=== PATIENT | female | born 1935 | race African-American/Black ===

== ENCOUNTER 2019-09-04 16:20 | Inpatient (IN) | payer MEDICARE, OTHER ==
[~2019-09-04] VITALS: Ht 165.1 cm; Wt 82.1 kg
[2019-09-04] MEDS ORDERED: Nitroglycerin 2% oint pkt TOPIC ONE (16:30)
[2019-09-04] MEDS ORDERED: Nitroglycerin Subl 0.4mg tab SL PRN (16:30)
--- NOTE | 2019-09-04 16:33 | Emergency Room Report ---
History of Present Illness General Chief Complaint: Dyspnea/Respdistress Source: Patient Present Illness HPI Disclaimer: Please note that this report is being documented using [employer] technology. This can lead to erroneous entry secondary to incorrect interpretation by the dictating instrument. HPI: 84-year-old female presents from home due to shortness of breath. She has a history of hypertension and CHF. She states she has been short of breath today. She denies any chest pain fever or coughing. EMS was called to the home. On their arrival patient was in the 80s on room air. Provided oxygen. On arrival to ER patient reports orthopnea and dyspnea on exertion. Sick contacts. PMH: Hypertension, CHF PSH: Reviewed Social Hx: Denies smoking drinking or illicit drug use Allergies: Coded Allergies: No Known Allergies (Unverified , 09/04/19) COVID-19 Screening Contact w/high risk pt: No Experienced COVID-19 symptoms?: Yes COVID-19 Testing performed METAL SOLDERER: No Patient History Last Menstrual Period: n/a Reviewed Nursing Documentation: PMH: Agreed; PSxH: Agreed Nursing Documentation-PMH Hx Hypertension: Yes - Hypertension Hx COPD: Yes - COPD Review of Systems All Other Systems: negative except mentioned in HPI Physical Exam Vital Signs Date Time Temp Pulse Resp B/P (MAP) Pulse Ox O2 Delivery O2 Flow Rate FiO2 09/04/19 16:15 98.8 115 18 165/103 (123) 99 Room Air Sp02 EP Interpretation: reviewed, normal General Appearance: well appearing, no apparent distress Head: normocephalic, atraumatic Eyes: bilateral eye PERRL, bilateral eye EOMI ENT: hearing grossly normal, moist mucus membranes Neck: full range of motion, supple Respiratory: normal breath sounds, no retraction, respiratory distress - Mild respiratory distress Cardiovascular #1: normal peripheral pulses, no murmur, tachycardia Gastrointestinal: non tender, soft, non-distended, no guarding Musculoskeletal: other - Trace bilateral lower extremity edema noted, no calf tenderness Neurologic: alert, oriented x3, no focal defects Skin: normal color, warm/dry Procedures Critical Care Time Critical Care Time Critical care is made on the patient due to presentation with bilateral PE requiring my acute intervention. Critical care time is approximately 40 minutes and excludes procedures. Medical Decision Making Diagnostic Impression: Primary Impression: Bilateral pulmonary embolism Additional Impressions: Shortness of breath Hypoxia ER Course MDM: Differential diagnosis included but not limited to COPD exacerbation, CHF exacerbation, pneumonia pulmonary embolism to name a few. Clinical course-IV inserted, chest x-ray laboratory studies nitroglycerin and Lasix ordered. Initially patient appeared to be in mild CHF exacerbation however chest x-ray did not show any obvious CHF pattern. Patient was tachycardic. Hypoxic on room air. I then decided to order a CT angiogram of the chest which demonstrated bilateral PE right greater than left. At this time patient was started on a heparin drip dosed by pharmacy and will be admitted overnight to the ICU. Update family at bedside in addition to patient' s primary care physician who requested Dr. Mcarthur. He did, evaluate the patient in the ER. Labs - Laboratory Tests Test 09/04/19 17:12 White Blood Count 8.4 K/UL (4.8-10.8) Red Blood Count 5.10 M/UL (4.20-5.40) Hemoglobin 15.3 G/DL (12.0-16.0) Hematocrit 46.4 % (37.0-47.0) Mean Corpuscular Volume 91 FL (80-99) Mean Corpuscular Hemoglobin 29.9 PG (27.0-31.0) Mean Corpuscular Hemoglobin Concent 32.9 G/DL (32.0-36.0) Red Cell Distribution Width 13.7 % (11.6-14.8) Platelet Count 179 K/UL (150-450) Mean Platelet Volume 9.6 FL (6.5-10.1) Neutrophils (%) (Auto) 59.4 % (45.0-75.0) Lymphocytes (%) (Auto) 29.8 % (20.0-45.0) Monocytes (%) (Auto) 7.9 % (1.0-10.0) Eosinophils (%) (Auto) 1.6 % (0.0-3.0) Basophils (%) (Auto) 1.4 % (0.0-2.0) Prothrombin Time 11.7 SEC (9.30-11.50) H Prothrombin Time INR 1.1 (0.9-1.1) Activated Partial Thromboplast Time 23 SEC (23-33) Sodium Level 137 MMOL/L (136-145) Potassium Level 3.3 MMOL/L (3.5-5.1) L Chloride Level 97 MMOL/L (98-107) L Carbon Dioxide Level 29 MMOL/L (21-32) Anion Gap 11 mmol/L (5-15) Blood Urea Nitrogen 17 mg/dL (7-18) Creatinine 1.1 MG/DL (0.55-1.30) Estimated Glomerular Filtration Rate 57.4 mL/min (>60) Glucose Level 138 MG/DL (74-106) H Calcium Level 9.4 MG/DL (8.5-10.1) Total Bilirubin 0.5 MG/DL (0.2-1.0) Aspartate Amino Transferase (AST) 56 U/L (15-37) H Alanine Aminotransferase (ALT) 47 U/L (12-78) Alkaline Phosphatase 103 U/L (46-116) Troponin I 0.014 ng/mL (0.000-0.056) Pro-B-Type Natriuretic Peptide 416 pg/mL (0-125) H Total Protein 8.4 G/DL (6.4-8.2) H Albumin 3.7 G/DL (3.4-5.0) Globulin 4.7 g/dL Albumin/Globulin Ratio 0.8 (1.0-2.7) L Microbiology Date/Time Source Procedure Growth Status 09/04/19 18:10 Nasopharynx SARS-CoV-2 RdRp Gene Assay - Final Complete On reevaluation: Patient appeared comfortable on facemask Plan-admission to the ICU, heparin drip EKG Diagnostic Results Rate: tachycardiac Rhythm: NSR ST Segments: other - ST depressions 1 aVL Other Impression Incomplete right bundle branch block Rhythm Strip Diag. Results EP Interpretation: yes Rhythm: no PVC's, no ectopy, other - Sinus tachycardia Chest X-Ray Diagnostic Results Chest X-Ray Diagnostic Results : Chest X-Ray Ordered: Yes # of Views/Limited/Complete: 1 View Indication: Shortness of Breath EP Interpretation: Yes Interpretation: no consolidation, no effusion, no pneumothorax Impression: No acute disease Electronically Signed by: Sadi Cohen MD CT/MRI/US Diagnostic Results CT/MRI/US Diagnostic Results : Imaging Test Ordered: CT angios chest Impression IMPRESSION: 1. Extensive bilateral central pulmonary emboli, right side more pronounced than the left side. 2. A few peripheral areas of pulmonary emboli predominantly the lower lobes. Last Vital Signs Date Time Temp Pulse Resp B/P (MAP) Pulse Ox O2 Delivery O2 Flow Rate FiO2 09/04/19 16:15 98.8 115 18 165/103 (123 99 Room Air Condition: Critical Sadi Cohen M.D. Sep 04, 2019 16:33
[2019-09-04 17:00] VITALS: BP 165/103
[2019-09-04 17:31] LABS: BASOPHILS % (AUTO) 1.4 % (0.0-2.0); EOSINOPHILS % (AUTO) 1.6 % (0.0-3.0); HEMATOCRIT 46.4 % (37.0-47.0); HEMOGLOBIN 15.3 G/DL (12.0-16.0); LYMPHOCYTES % (AUTO) 29.8 % (20.0-45.0); MEAN CORPUSCULAR VOLUME 91 FL (80-99); MONOCYTES % (AUTO) 7.9 % (1.0-10.0); NEUTROPHILS % (AUTO) 59.4 % (45.0-75.0); PLATELET COUNT 179 K/UL (150-450); RED CELL DISTRIBUTION WIDTH 13.7 % (11.6-14.8); WHITE BLOOD COUNT 8.4 K/UL (4.8-10.8)
[2019-09-04 17:41] LABS: INR 1.1 (0.9-1.1)
[2019-09-04 17:43] LABS: ANION GAP 11 mmol/L (5-15); BLOOD UREA NITROGEN 17 mg/dL (7-18); CALCIUM 9.4 MG/DL (8.5-10.1); CARBON DIOXIDE 29 MMOL/L (21-32); CHLORIDE 97 MMOL/L (98-107); CREATININE 1.1 MG/DL (0.55-1.30); POTASSIUM 3.3 MMOL/L (3.5-5.1); SODIUM 137 MMOL/L (136-145)
[2019-09-04 17:54] LABS: ALANINE AMINOTRANSFERASE 47 U/L (12-78); ALBUMIN 3.7 G/DL (3.4-5.0); ALBUMIN/GLOBULIN RATIO 0.8 (1.0-2.7); ALKALINE PHOSPHATASE 103 U/L (46-116); ASPARTATE AMINO TRANSFERASE 56 U/L (15-37); BILIRUBIN,TOTAL 0.5 MG/DL (0.2-1.0)
[2019-09-04] MEDS ORDERED: Omnipaque 350 100ml vial INJ PRN (18:15)
[2019-09-04] MEDS ORDERED: Albuterol/Ipratropium 3ml neb HHN PRN (19:30)
[2019-09-04] MEDS ORDERED: Miralax 17gm pkt ORAL PRN ×2 (19:30→21:00)
--- NOTE | 2019-09-04 19:30 | Diagnostic Imaging Report ---
EXAM: CT Chest With Intravenous Contrast CLINICAL HISTORY: SOB TECHNIQUE: Axial computed tomographic images of the chest with intravenous contrast. CTDI is 39.8 mGy and DLP is 236.9 mGy-cm. One or more of the following dose reduction techniques were used: automated exposure control, adjustment of the mA and/or kV according to patient size, use of iterative reconstruction technique. COMPARISON: 09/04/2019. FINDINGS: Pulmonary arteries: There is massive pulmonary embolism within the right main pulmonary artery extending out into the immediate branches. The thrombus within right main pulmonary artery measures approximately 5 x 6 x 4.4 rowan in extent. There is are pulmonary embolism within the distal left main pulmonary artery measuring approximate 1.6 x 2.3 x 1.8 cm. Aorta: Atherosclerotic disease of the thoracic aorta. Branches of the thoracic aorta are unremarkable. No thoracic aortic aneurysm. Lungs: Evaluation of the right pulmonary parenchyma reveals minimal subsegmental atelectasis posteriorly. Evaluation of the left pulmonary parenchyma reveals presumed areas of subsegmental atelectasis posteriorly. Minimal bronchiectasis at the left lung base. Minimal peripheral emboli are noted at the right upper lobe and the right lower lobe. No mass. Pleural space: Unremarkable. No significant effusion. No pneumothorax. Heart: Cardiomegaly. No significant pericardial effusion. No evidence of RV dysfunction. Mediastinum: Small to moderate hiatal hernia. Probable distal esophagitis. Bones/joints: Moderate to severe degenerative disc disease of the thoracic spine. The sternum is unremarkable. No acute fracture. No dislocation. Soft tissues: Unremarkable. Lymph nodes: Unremarkable. No enlarged lymph nodes. Liver: Fatty infiltration of liver. Adrenals: 1 cm probable left adrenal adenoma. 0.8 cm probable right adrenal adenoma. IMPRESSION: 1. Extensive bilateral central pulmonary emboli, right side more pronounced than the left side. 2. A few peripheral areas of pulmonary emboli predominantly the lower lobes. <MYCVCSECTION> Communications: 09/04/19 19:34 Call Doctor Regarding Pulmonary Embolism, called Dr. Marino on 09/03 19:39 (-07:00)
[2019-09-04 19:32] VITALS: BP 161/89
[2019-09-04] MEDS ORDERED: Heparin 5000 units/ml inj IV SCH (20:00)
[2019-09-04] MEDS ORDERED: Heparin 25,000u/D5W 500ml (VTE/AF) IV SCH (20:00)
[2019-09-04] MEDS ORDERED: Morphine Sulfate 2mg/ml Inj(IV/IM USE ONLY) IVP PRN (20:15)
[2019-09-04 20:30] VITALS: BP 129/78
--- NOTE | 2019-09-04 20:30 | History & Physical ---
History and Physical History & Physicial #[id number] dictated Papo Mcarthur MD Sep 04, 2019 20:30
[2019-09-04 21:00] VITALS: BP 132/87
[2019-09-04] MEDS ORDERED: Heparin 5000 units/ml inj SUBQ SCH (21:00)
[2019-09-04 22:00] VITALS: BP 122/87
--- NOTE | 2019-09-04 22:00 | History and Physical Report ---
DATE OF ADMISSION: 09/04/2019 CHIEF COMPLAINT: Shortness of breath. HISTORY OF PRESENT ILLNESS: This is an 84-year-old female with history of hypertension, hyperlipidemia, diabetes type 2, gout, hyponatremia, B12 deficiency, obesity, lower back pain, history of PE in 2018 treated with anticoagulation, hypertension, history of leaky valve, stroke, diabetes who presents to the emergency room with shortness of breath, which started earlier today at 3:30 p.m. while walking to the bathroom. She suddenly had chest pain radiating to her back and sudden shortness of breath. Her daughter brought her into the emergency room because of respiratory distress with shortness of breath. The patient was saturating in the 80s on room air upon arrival to the emergency room. She had a CTA chest showing extensive bilateral central pulmonary emboli right more than left. The patient denies any recent trips. She denies any trauma. She denies any long car rides or plane rides. She denies any history of malignancy. She does state that she does not walk and very sedentary due to her lower back pain. Her lower back pain is worse with walking and better when sitting. PAST MEDICAL HISTORY: As mentioned above obesity, history of PE and DVTs, diabetes, gout, hypertension, hyponatremia, osteoarthritis, lower back pain, history of valvular disorder of unknown valve, history of stroke, hypertension. PAST SURGICAL HISTORY: History of hysterectomy. SOCIAL HISTORY: The patient does not drink alcohol, smoke, or use any drugs. FAMILY HISTORY: Noncontributory. ALLERGIES: No known drug allergies. MEDICATIONS: Reviewed in DNA SEQ. REVIEW OF SYSTEMS: A 12-point review of systems negative except for pertinent positives as mentioned above. PHYSICAL EXAMINATION: VITAL SIGNS: Temperature is 98.4, pulse is 98, respiratory rate 22, blood pressure 161/89, O2 saturation is 87% on room air and 98% on 2 L. GENERAL: No acute distress. The patient is alert, awake, oriented x3. She is obese. NECK: Supple. No JVD. LUNGS: Clear to auscultation bilaterally with diminished lung sounds. CARDIOVASCULAR: Tachycardic. No murmurs, gallops, or rubs. ABDOMEN: Obese, nontender, and nondistended. EXTREMITIES: No clubbing, cyanosis, or edema. NEUROLOGIC: The patient is able move all extremities. SKIN: No rashes or jaundice. LABORATORY AND DIAGNOSTIC DATA: CBC, white count of 8.4, hemoglobin 15.3, and platelet count 179. CMP sodium 137, potassium 3.3, chloride 97, CO2 29, BUN is 17, creatinine is 1.1. Troponin 0.014. INR is 1.1. EKG reveals no ST changes. CTA shows bilateral pulmonary emboli. ASSESSMENT: 1. Acute PE bilaterally. 2. Obesity. 3. Sedentary secondary to lower back pain. 4. History of stroke. 5. History of PE and DVT. 6. Hypertension. 7. Diabetes. 8. Gout. 9. Lower back pain, likely lumbar spinal stenosis. PLAN: 1. Admit the patient to telemetry. 2. Pulmonary consult with Dr. Benjamin 3. Heparin drip. 4. TTE ordered for a.m. doppler legs ordered 5. Trend troponin. 6. The patient to be on oxygen with O2 sats at greater than 92%. 7. Lumbar and thoracic MRI. 8. Continue the patient's home medications. Papo Mcarthur MD DR: Hui JOB#: [id number] CC: FRANCOIS
[2019-09-04 23:00] VITALS: BP 116/72
[2019-09-05] VITALS (24 sets, daily range): BP systolic 97–142; BP diastolic 54–90
[2019-09-05] MEDS: Heparin 25,000u/D5W 500ml (VTE/AF) IV SCH ×2 (04:20→14:15)
[2019-09-05 05:28] LABS: EOSINOPHILS % (AUTO) 1.2 % (0.0-3.0); HEMATOCRIT 44.3 % (37.0-47.0); HEMOGLOBIN 14.6 G/DL (12.0-16.0); LYMPHOCYTES % (AUTO) 39.7 % (20.0-45.0); MEAN CORPUSCULAR VOLUME 90 FL (80-99); NEUTROPHILS % (AUTO) 50.2 % (45.0-75.0); PLATELET COUNT 180 K/UL (150-450); RED BLOOD COUNT 4.91 M/UL (4.20-5.40); RED CELL DISTRIBUTION WIDTH 12.6 % (11.6-14.8); WHITE BLOOD COUNT 9.1 K/UL (4.8-10.8)
[2019-09-05 05:55] LABS: ALBUMIN 3.5 G/DL (3.4-5.0); ANION GAP 10 mmol/L (5-15); BLOOD UREA NITROGEN 15 mg/dL (7-18); CALCIUM 8.7 MG/DL (8.5-10.1); CARBON DIOXIDE 27 MMOL/L (21-32); CHLORIDE 99 MMOL/L (98-107); CREATININE 1.1 MG/DL (0.55-1.30); PHOSPHORUS 5.9 MG/DL (2.5-4.9); POTASSIUM 3.5 MMOL/L (3.5-5.1); SODIUM 136 MMOL/L (136-145)
--- NOTE | 2019-09-05 08:22 | Consultation ---
Mandi Abreu KETTLE COORDINATOR 09/05/19 0822: History of Present Illness General Date patient seen: Sep 05, 2019 Chief Complaint: Dyspnea/Respdistress Referring physician: Dr Mcarthur Reason for Consultation: resp failure, expensive PE Present Illness HPI 84 years old female with PMH of HTN, DM, HLD, CHF, CVA, hx of PE, treated with a /c, currently not on any a/c, presented to ED with SOB, noted earlier while walking to the bathroom. Patient had a chest pain radiating to her back and sudden shortness of breath. On room air pulse oximetry apparently was in 80s Patient denied any trauma. She denied any recent treatment. She denied any history of malignancy. She denied fever and chills. No cough or congestion. Upon evaluation vital signs revealed no fever, tachycardia with heart rate 115, elevated blood pressure 165/103. Chest x-ray revealed subtle patchy opacity at the left base , which may be related to subsegmental atelectasis. CTA of the chest revealed extensive bilateral central pulmonary emboli, right side more than left. A few peripheral areas of pulmonary emboli predominantly the lower lobes. Laboratory work-up revealed no leukocytosis ,stable hemoglobin and hematocrit. Stable electrolytes , except potassium 3.3. Glucose 138. First troponin was -0.014. Second troponin 0.61. EKG revealed sinus tachycardia ,no acute ischemic changes. ProBNP 416. ABG was stable. Albumin 3.7. AST 56 ALT 47 . Rapid COVID-19 was negative. In emergency department patient was placed on supplemental oxygen via face mask. Patient started on heparin drip. One dose of IV Lasix was given. Patient had nitroglycerin patch . Second troponin 0.621. Patient admitted to ICU for further management . Pulmonary consult was requested to assist in management of this patient. Allergies: Coded Allergies: No Known Allergies (Unverified , 09/04/19) Medication History Scheduled Hydrochlorothiazide* (Hydrochlorothiazide*), 12.5 MG ORAL DAILY, (Reported) Nebivolol Hcl* (Bystolic*), 2.5 MG ORAL DAILY, (Reported) [CILNIDIPINE 10mg], 10 MG PO DAILY, (Reported) Patient History History Provided By: Patient Healthcare decision maker Resuscitation status Full code Advanced Directive on File Past Medical/Surgical History Past Medical/Surgical History: (1) Hyperlipidemia (2) Stroke (3) Diabetes (4) History of pulmonary embolism (5) HTN (hypertension) Review of Systems Constitutional: Reports: weakness Eye: Reports: no symptoms ENT: Reports: no symptoms Respiratory: Reports: see HPI Cardiovascular: Reports: see HPI Gastrointestinal: Reports: no symptoms Genitourinary: Reports: no symptoms Musculoskeletal: Reports: other - low back ain, chronic Skin: Reports: no symptoms Psychiatric: Reports: no symptoms Neurological: Reports: other - hx of CVA Endocrine: Reports: other - hx of DM Hematologic/Lymphatic: Reports: other - hx of PE 2018, treated with a/c Physical Exam General Appearance: no apparent distress - awake ad responsive elderly female , obese Lines, tubes and drains: peripheral HEENT: normocephalic, atraumatic, anicteric, mucous membranes moist Neck: non-tender, supple, normal inspection Respiratory/Chest: chest wall non-tender, lungs clear, no respiratory distress , no accessory muscle use Cardiovascular/Chest: normal peripheral pulses, normal rate, regular rhythm Abdomen: normal bowel sounds, non tender, soft Extremities: non-tender, no calf tenderness, normal capillary refill, other - moves all extremities Skin Exam: warm/dry Neurologic: no motor/sensory deficits, alert, responsive Musculoskeletal: atrophy - BLE Last 24 Hour Vital Signs Date Time Temp Pulse Resp B/P (MAP) Pulse Ox O2 Delivery O2 Flow Rate FiO2 09/05/19 07:00 98.0 79 21 124/74 (91) 98 09/05/19 06:00 77 20 97/63 (74) 97 09/05/19 05:00 75 20 106/65 (79) 97 09/05/19 04:00 77 09/05/19 04:00 Nasal Cannula 5.0 09/05/19 04:00 98.0 81 24 124/71 (88) 95 09/05/19 03:00 84 27 117/70 (86) 97 09/05/19 02:00 89 27 124/80 (95) 95 09/05/19 01:00 29 103/54 (70) 95 09/05/19 00:00 Nasal Cannula 5.0 09/05/19 00:00 100 09/05/19 00:00 30 113/64 (80) 95 09/04/19 23:00 30 116/72 (87) 97 09/04/19 22:00 26 122/87 (99) 98 09/04/19 22:00 Nasal Cannula 4.0 36 09/04/19 21:00 98.4 98 24 129/78 98 Room Air 09/04/19 21:00 Nasal Cannula 5.0 09/04/19 21:00 97.8 26 132/87 (102) 98 09/04/19 20:30 98.4 98 24 129/78 98 Room Air 09/04/19 19:32 98.4 22 161/89 98 Room Air 09/04/19 17:51 127/77 09/04/19 17:00 98.8 18 165/103 99 Room Air 09/04/19 17:00 94 18 Room Air 09/04/19 16:15 98.8 115 18 165/103 (123) 99 Room Air Intake and Output 09/04/19 09/05/19 19:00 07:00 Intake Total 492.846 ml Output Total 420 ml Balance 72.846 ml Intake Oral 120 ml IV Total 372.846 ml Output Urine Total 420 ml # Voids 1 # Bowel Movements 1 Laboratory Tests Test 09/04/19 17:12 09/04/19 21:43 09/04/19 23:15 09/05/19 02:00 White Blood Count 8.4 K/UL (4.8-10.8) Red Blood Count 5.10 M/UL (4.20-5.40) Hemoglobin 15.3 G/DL (12.0-16.0) Hematocrit 46.4 % (37.0-47.0) Mean Corpuscular Volume 91 FL (80-99) Mean Corpuscular Hemoglobin 29.9 PG (27.0-31.0) Mean Corpuscular Hemoglobin Concent 32.9 G/DL (32.0-36.0) Red Cell Distribution Width 13.7 % (11.6-14.8) Platelet Count 179 K/UL (150-450) Mean Platelet Volume 9.6 FL (6.5-10.1) Neutrophils (%) (Auto) 59.4 % (45.0-75.0) Lymphocytes (%) (Auto) 29.8 % (20.0-45.0) Monocytes (%) (Auto) 7.9 % (1.0-10.0) Eosinophils (%) (Auto) 1.6 % (0.0-3.0) Basophils (%) (Auto) 1.4 % (0.0-2.0) Prothrombin Time 11.7 SEC (9.30-11.50) H Prothromb Time International Ratio 1.1 (0.9-1.1) Activated Partial Thromboplast Time 23 SEC (23-33) 145 SEC (23-33) H Sodium Level 137 MMOL/L (136-145) Potassium Level 3.3 MMOL/L (3.5-5.1) L Chloride Level 97 MMOL/L (98-107) L Carbon Dioxide Level 29 MMOL/L (21-32) Anion Gap 11 mmol/L (5-15) Blood Urea Nitrogen 17 mg/dL (7-18) Creatinine 1.1 MG/DL (0.55-1.30) Estimat Glomerular Filtration Rate 57.4 mL/min (>60) Glucose Level 138 MG/DL (74-106) H Calcium Level 9.4 MG/DL (8.5-10.1) Total Bilirubin 0.5 MG/DL (0.2-1.0) Aspartate Amino Transf (AST/SGOT) 56 U/L (15-37) H Alanine Aminotransferase (ALT/SGPT) 47 U/L (12-78) Alkaline Phosphatase 103 U/L (46-116) Troponin I 0.014 ng/mL (0.000-0.056) 0.621 ng/mL (0.000-0.056) Pro-B-Type Natriuretic Peptide 416 pg/mL (0-125) H Total Protein 8.4 G/DL (6.4-8.2) H Albumin 3.7 G/DL (3.4-5.0) Globulin 4.7 g/dL Albumin/Globulin Ratio 0.8 (1.0-2.7) L Arterial Blood pH 7.439 (7.350-7.450) Arterial Blood Partial Pressure CO2 36.1 mmHg (35.0-45.0) Arterial Blood Partial Pressure O2 87.5 mmHg (75.0-100.0) Arterial Blood HCO3 23.9 mmol/L (22.0-26.0) Arterial Blood Oxygen Saturation 96.4 % (95-100) Arterial Blood Base Excess 0.2 (-2-2) Roman Test Positive Test 09/05/19 05:00 White Blood Count 9.1 K/UL (4.8-10.8) Red Blood Count 4.91 M/UL (4.20-5.40) Hemoglobin 14.6 G/DL (12.0-16.0) Hematocrit 44.3 % (37.0-47.0) Mean Corpuscular Volume 90 FL (80-99) Mean Corpuscular Hemoglobin 29.8 PG (27.0-31.0) Mean Corpuscular Hemoglobin Concent 33.0 G/DL (32.0-36.0) Red Cell Distribution Width 12.6 % (11.6-14.8) Platelet Count 180 K/UL (150-450) Mean Platelet Volume 8.8 FL (6.5-10.1) Neutrophils (%) (Auto) 50.2 % (45.0-75.0) Lymphocytes (%) (Auto) 39.7 % (20.0-45.0) Monocytes (%) (Auto) 8.0 % (1.0-10.0) Eosinophils (%) (Auto) 1.2 % (0.0-3.0) Basophils (%) (Auto) 1.0 % (0.0-2.0) Sodium Level 136 MMOL/L (136-145) Potassium Level 3.5 MMOL/L (3.5-5.1) Chloride Level 99 MMOL/L (98-107) Carbon Dioxide Level 27 MMOL/L (21-32) Anion Gap 10 mmol/L (5-15) Blood Urea Nitrogen 15 mg/dL (7-18) Creatinine 1.1 MG/DL (0.55-1.30) Estimat Glomerular Filtration Rate 57.4 mL/min (>60) Glucose Level 148 MG/DL (74-106) H Calcium Level 8.7 MG/DL (8.5-10.1) Phosphorus Level 5.9 MG/DL (2.5-4.9) H Troponin I 0.619 ng/mL (0.000-0.056) Albumin 3.5 G/DL (3.4-5.0) Microbiology Date/Time Source Procedure Growth Status 09/04/19 18:10 Nasopharynx SARS-CoV-2 RdRp Gene Assay - Final Complete 09/04/19 20:40 Rectum Received Height (Feet): 5 Height (Inches): 5.00 Weight (Pounds): 176 Medications Current Medications Medications (Trade) Dose Ordered Sig/Francisca Route PRN Reason Start Time Stop Time Status Last Admin Dose Admin Acetaminophen (Tylenol) 650 mg Q4H PRN ORAL T>100.5 09/04/19 19:30 10/04/19 19:29 Acetaminophen (Tylenol) 650 mg Q4H PRN ORAL Mild Pain (Pain Scale 1-3) 09/04/19 20:15 10/04/19 20:14 Albuterol/ Ipratropium (Albuterol/ Ipratropium) 3 ml Q4H PRN HHN Shortness of Breath 09/04/19 19:30 09/09/19 19:29 Dextrose (Dextrose 50%) 25 ml Q30M PRN IV Hypoglycemia 09/04/19 20:15 12/03/19 20:14 Dextrose (Dextrose 50%) 50 ml Q30M PRN IV Hypoglycemia 09/04/19 20:15 12/03/19 20:14 Heparin Sodium/ Dextrose 500 ml @ 27.21 mls/ hr ADJUST PER PROTOCOL IV 09/05/19 04:15 10/05/19 04:14 09/05/19 04:20 Hydralazine HCl (Apresoline) 10 mg Q4H PRN IV sbp>160 mmHg 09/04/19 20:30 12/03/19 20:29 Iohexol (Omnipaque 350 100ml) 100 ml NOW PRN INJ Radiology Procedure 09/04/19 18:15 09/06/19 18:12 Morphine Sulfate (Morphine Sulfate) 2 mg Q6H PRN IVP Moderate Pain (Pain Scale 4-6) 09/04/19 20:15 09/11/19 20:14 Nitroglycerin (Ntg) 0.4 mg Q5M PRN SL Prn Chest Pain 09/04/19 16:30 Ondansetron HCl (Zofran) 4 mg Q6H PRN IVP Nausea & Vomiting 09/04/19 20:15 10/04/19 20:14 Polyethylene Glycol (Miralax) 17 gm HSPRN PRN ORAL Constipation 09/04/19 21:00 10/04/19 20:59 Temazepam (Restoril) 15 mg HSPRN PRN ORAL Insomnia 09/04/19 21:00 09/11/19 20:59 Assessment/Plan Assessment/Plan: ASSESSMENT Acute hypoxemic resp failure ( requiring supplemetnal O2, likely due to acute extensive PE) Acute PE bilaterally ( with hx of prior PE 2018) Elevated troponin Acute DVT R popliteal and femoral veins HTN Severe pulmonary HTN DM HLD CHF r/o COVID 19 -rapid NGT PLAN OF CARE tele O2 titrate to keep sat above 92%, currenty on NC pulm toilet agree with heparin gtt for now,will consider switching to Lovenox treatment later given second episode pf PE will need a/c for a long time Venous Duplex -> DVT involving the right popliteal and femoral veins reoccurrence of PE most likely due to DVT, secondary to sedentary lifestyle serial troponin, this am minimally elevated ECHO with pEG 65%, moderate TR, RVSP of 65, c/w severe pulmonary HTN elevated troponin likely due to extensive PE BB, nitro consider cardio eval - per attending diuretics: Lasix and HcTZ, monitor volumes and cardiorenal parameters BP management, currently stable on this regimen of BB, Lasix and HcTZ add GI prophylaxis BS management - per primary team supportive care when dc consider sleep study and PFT as OP case discussed and evaluated by supervising physician Avila Benjamin MD 09/05/192044: History of Present Illness General Chief Complaint: Dyspnea/Respdistress Present Illness Allergies: Coded Allergies: No Known Allergies (Unverified , 09/04/19) Medication History Scheduled Hydrochlorothiazide* (Hydrochlorothiazide*), 12.5 MG ORAL DAILY, (Reported) Nebivolol Hcl* (Bystolic*), 2.5 MG ORAL DAILY, (Reported) [CILNIDIPINE 10mg], 10 MG PO DAILY, (Reported) Assessment/Plan Assessment/Plan: Patient seen and examined with KETTLE COORDINATOR. Agree with above A&P as it reflects our joint deliberations. Large b/l central PEs, hemodynamically stable but noted with LE DVTs and concern if there is dislodged DVT this could be catastrophic. Options would included transfer to [facility] for EKOS catheter but patient reluctant to do this. Discussed IVC filter placement and discussed this option with her granddaughter. Patient ultimatley agreed and this has been ordered STAT. Cont heparin gtt. Mandi Abreu KETTLE COORDINATOR Sep 05, 2019 08:22 Avila Benjamin MD Sep 05, 2019 20:45
--- NOTE | 2019-09-05 09:34 | Diagnostic Imaging Report ---
Indication:Leg pain and swelling Technique: Grayscale and duplex Doppler imaging of the veins in both lower extremities performed in real time utilizing compression and augmentation. Comparison: None Findings: The right common femoral vein is patent and normally compressible. It demonstrates normal color flow. The very proximal portion of the right femoral vein is patent. Mid and distal segments demonstrate echogenic thrombus with lack of complete compressibility. There is also echogenic thrombus and lack of complete compressibility within the right popliteal vein. Some color flow is noted around this suggesting that thrombus is only partially occlusive. Left common femoral vein and imaged portions of the left proximal/mid/distal femoral vein and left popliteal vein are patent with normal compressibility and color flow. IMPRESSION: Deep venous thrombosis involving the right popliteal and femoral veins. No evidence of DVT on the left. Findings communicated to the patient's treating ICU nurse via telephone conversation.
--- NOTE | 2019-09-05 10:56 | Diagnostic Imaging Report ---
Indication: Shortness of breath Technique: XRAY Chest 1v Comparison: None Findings: Heart is borderline enlarged. Mediastinal contours are sharp. Atherosclerotic calcifications in the aorta. Subtle patchy opacities noted at the left base which may related to subsegmental atelectasis. No pleural effusion or pneumothorax. No radiographic evidence to suggest pulmonary edema. There are degenerative changes in the spine. No acute osseous abnormality. Impression: Subtle patchy opacities at the left base which may related to subsegmental atelectasis. Correlate clinically to exclude the possibility of developing pneumonia. Atherosclerotic vascular calcifications.
[2019-09-05] MEDS: hydroCHLOROthiazide 12.5mg TAB ORAL SCH (11:42)
[2019-09-05] MEDS: Bystolic 2.5mg Tab ORAL SCH (12:09)
[2019-09-05] MEDS ORDERED: BYSTOLIC2.5 MG ORAL (18:34)
[2019-09-05] MEDS ORDERED: [UNRECOGNIZED DRUG - OTHER] PO (18:34)
[2019-09-05] MEDS ORDERED: HYDROCHLOROTH12.5 MG ORAL (18:34)
--- NOTE | 2019-09-05 19:11 | Internal Med Progress Note ---
Subjective Physician Name Papo Mcarthur Attending Physician Papo Mcarthur MD Current Medications Medications (Trade) Dose Ordered Sig/Francisca Route PRN Reason Start Time Stop Time Status Last Admin Dose Admin Acetaminophen (Tylenol) 650 mg Q4H PRN ORAL T>100.5 09/04/19 19:30 10/04/19 19:29 Acetaminophen (Tylenol) 650 mg Q4H PRN ORAL Mild Pain (Pain Scale 1-3) 09/04/19 20:15 10/04/19 20:14 Albuterol/ Ipratropium (Albuterol/ Ipratropium) 3 ml Q4H PRN HHN Shortness of Breath 09/04/19 19:30 09/09/19 19:29 Dextrose (Dextrose 50%) 25 ml Q30M PRN IV Hypoglycemia 09/04/19 20:15 12/03/19 20:14 Dextrose (Dextrose 50%) 50 ml Q30M PRN IV Hypoglycemia 09/04/19 20:15 12/03/19 20:14 Heparin Sodium/ Dextrose 500 ml @ 27.21 mls/ hr ADJUST PER PROTOCOL IV 09/05/19 04:15 10/05/19 04:14 09/05/19 14:15 Hydralazine HCl (Apresoline) 10 mg Q4H PRN IV sbp>160 mmHg 09/04/19 20:30 12/03/19 20:29 Hydrochlorothiazide (Hydrodiuril) 12.5 mg DAILY ORAL 09/05/19 11:00 10/05/19 10:59 09/05/19 11:42 Iohexol (Omnipaque 350 100ml) 100 ml NOW PRN INJ Radiology Procedure 09/04/19 18:15 09/06/19 18:12 Morphine Sulfate (Morphine Sulfate) 2 mg Q6H PRN IVP Moderate Pain (Pain Scale 4-6) 09/04/19 20:15 09/11/19 20:14 Nebivolol (Bystolic) 2.5 mg DAILY ORAL 09/05/19 12:00 10/05/19 11:59 09/05/19 12:09 Nitroglycerin (Ntg) 0.4 mg Q5M PRN SL Prn Chest Pain 09/04/19 16:30 Ondansetron HCl (Zofran) 4 mg Q6H PRN IVP Nausea & Vomiting 09/04/19 20:15 10/04/19 20:14 Pantoprazole (Protonix) 40 mg DAILY ORAL 09/06/19 09:00 10/06/19 08:59 Polyethylene Glycol (Miralax) 17 gm HSPRN PRN ORAL Constipation 09/04/19 21:00 10/04/19 20:59 Temazepam (Restoril) 15 mg HSPRN PRN ORAL Insomnia 09/04/19 21:00 09/11/19 20:59 Allergies: Coded Allergies: No Known Allergies (Unverified , 09/04/19) Subjective in ICU on 7L O2 O2 sat 99% no CP Objective Last Vital Signs Date Time Temp Pulse Resp B/P (MAP) Pulse Ox O2 Delivery O2 Flow Rate FiO2 09/05/19 18:00 87 23 138/82 (100) 99 09/05/19 16:00 97.6 09/05/19 16:00 Nasal Cannula 5.0 09/04/19 22:00 36 General Appearance: WD/WN, no apparent distress EENT: PERRL/EOMI, normal ENT inspection Neck: normal alignment, supple Cardiovascular: normal rate, regular rhythm Respiratory/Chest: lungs clear, normal breath sounds Abdomen: non tender, soft Extremities: normal range of motion, non-tender Laboratory Tests Test 09/04/19 21:43 09/04/19 23:15 09/05/19 02:00 09/05/19 05:00 Arterial Blood pH 7.439 (7.350-7.450) Arterial Blood Partial Pressure CO2 36.1 mmHg (35.0-45.0) Arterial Blood Partial Pressure O2 87.5 mmHg (75.0-100.0) Arterial Blood HCO3 23.9 mmol/L (22.0-26.0) Arterial Blood Oxygen Saturation 96.4 % (95-100) Arterial Blood Base Excess 0.2 (-2-2) Roman Test Positive Troponin I 0.621 ng/mL (0.000-0.056) 0.619 ng/mL (0.000-0.056) Activated Partial Thromboplast Time 145 SEC (23-33) H White Blood Count 9.1 K/UL (4.8-10.8) Red Blood Count 4.91 M/UL (4.20-5.40) Hemoglobin 14.6 G/DL (12.0-16.0) Hematocrit 44.3 % (37.0-47.0) Mean Corpuscular Volume 90 FL (80-99) Mean Corpuscular Hemoglobin 29.8 PG (27.0-31.0) Mean Corpuscular Hemoglobin Concent 33.0 G/DL (32.0-36.0) Red Cell Distribution Width 12.6 % (11.6-14.8) Platelet Count 180 K/UL (150-450) Mean Platelet Volume 8.8 FL (6.5-10.1) Neutrophils (%) (Auto) 50.2 % (45.0-75.0) Lymphocytes (%) (Auto) 39.7 % (20.0-45.0) Monocytes (%) (Auto) 8.0 % (1.0-10.0) Eosinophils (%) (Auto) 1.2 % (0.0-3.0) Basophils (%) (Auto) 1.0 % (0.0-2.0) Sodium Level 136 MMOL/L (136-145) Potassium Level 3.5 MMOL/L (3.5-5.1) Chloride Level 99 MMOL/L (98-107) Carbon Dioxide Level 27 MMOL/L (21-32) Anion Gap 10 mmol/L (5-15) Blood Urea Nitrogen 15 mg/dL (7-18) Creatinine 1.1 MG/DL (0.55-1.30) Estimat Glomerular Filtration Rate 57.4 mL/min (>60) Glucose Level 148 MG/DL (74-106) H Calcium Level 8.7 MG/DL (8.5-10.1) Phosphorus Level 5.9 MG/DL (2.5-4.9) H Albumin 3.5 G/DL (3.4-5.0) Test 09/05/19 10:10 Activated Partial Thromboplast Time 65 SEC (23-33) H Microbiology Date/Time Source Procedure Growth Status 09/04/19 18:10 Nasopharynx SARS-CoV-2 RdRp Gene Assay - Final Complete 09/04/19 20:40 Rectum Received Intake and Output 09/04/19 09/05/19 19:00 07:00 Intake Total 492.846 ml Output Total 420 ml Balance 72.846 ml Intake Oral 120 ml IV Total 372.846 ml Output Urine Total 420 ml # Voids 1 # Bowel Movements 1 Assessment/Plan Assessment/Plan ASSESSMENT: 1. Acute PE bilaterally. 2. Obesity. 3. Sedentary secondary to lower back pain. 4. History of stroke. 5. History of PE and DVT. 6. Hypertension. 7. Diabetes. 8. Gout. 9. Lower back pain, likely lumbar spinal stenosis. 10. Deep venous thrombosis involving the right popliteal and femoral veins. PLAN: 1. ICU 2. Pulmonary consult with Dr. Benjamin 3. Heparin drip. 4. TTE - awaiting results 5.explained to patient that IVC filter will prevent further embolism given femoral DVT. she is agreeable. IVC filter ordered for weekend 6. The patient to be on oxygen with O2 sats at greater than 92%. 7. Lumbar and thoracic MRI as outpatient 8. Continue the patient's home medications. Papo Mcarthur MD Sep 05, 2019 19:11
[2019-09-05] MEDS ORDERED: Lidocaine 1% Plain 30 ml INJ PRN (19:30)
[2019-09-06] VITALS (24 sets, daily range): BP systolic 105–143; BP diastolic 54–83
[2019-09-06 05:03] LABS: BASOPHILS % (AUTO) 1.2 % (0.0-2.0); EOSINOPHILS % (AUTO) 4.3 % (0.0-3.0); HEMATOCRIT 43.1 % (37.0-47.0); HEMOGLOBIN 14.1 G/DL (12.0-16.0); LYMPHOCYTES % (AUTO) 43.6 % (20.0-45.0); MEAN CORPUSCULAR VOLUME 91 FL (80-99); MONOCYTES % (AUTO) 10.8 % (1.0-10.0); NEUTROPHILS % (AUTO) 40.1 % (45.0-75.0); PLATELET COUNT 170 K/UL (150-450); RED BLOOD COUNT 4.74 M/UL (4.20-5.40); RED CELL DISTRIBUTION WIDTH 12.9 % (11.6-14.8); WHITE BLOOD COUNT 7.1 K/UL (4.8-10.8)
[2019-09-06 05:19] LABS: ANION GAP 8 mmol/L (5-15); BLOOD UREA NITROGEN 15 mg/dL (7-18); CALCIUM 8.9 MG/DL (8.5-10.1); CARBON DIOXIDE 28 MMOL/L (21-32); CHLORIDE 101 MMOL/L (98-107); CREATININE 1.1 MG/DL (0.55-1.30); POTASSIUM 3.2 MMOL/L (3.5-5.1); SODIUM 137 MMOL/L (136-145)
[2019-09-06] MEDS ORDERED: Lactulose 20gm/30ml UDC ORAL SCH (08:15)
[2019-09-06] MEDS: hydroCHLOROthiazide 12.5mg TAB ORAL SCH (08:47)
[2019-09-06] MEDS: Bystolic 2.5mg Tab ORAL SCH (08:47)
[2019-09-06] MEDS: Heparin 25,000u/D5W 500ml (VTE/AF) IV SCH (08:58)
--- NOTE | 2019-09-06 09:09 | Pulmonolgy Critical Care Note ---
Mandi Abreu SURVEY RESEARCH PROFESSOR 09/06/19 0909: Critical Care - Asmt/Plan Assessment/Plan: ASSESSMENT Acute hypoxemic resp failure ( requiring supplemetnal O2, likely due to acute extensive PE) Acute PE bilaterally ( with hx of prior PE 2018) Elevated troponin Acute DVT R popliteal and femoral veins HTN Severe pulmonary HTN Hypokalemia DM HLD CHF r/o COVID 19 -rapid NGT constipation PLAN OF CARE tele O2 titrate to keep sat above 92%, currenty on NC pulm toilet with heparin gtt for now,will consider switching to Lovenox treatment later given second episode of PE will need a/c for a long time Venous Duplex -> DVT involving the right popliteal and femoral veins reoccurrence of PE most likely due to DVT, secondary to sedentary lifestyle IVC filter placement pending, not be done till Sunday serial troponin, minimally elevated ECHO with pEG 65%, moderate TR, RVSP of 65, c/w severe pulmonary HTN elevated troponin likely due to extensive PE BB, nitro consider cardio eval - per attending diuretics: Lasix and HcTZ, monitor volumes and cardiorenal parameters BP management, currently stable on this regimen of BB, Lasix and HcTZ added GI prophylaxis replace K, check Mg, BS management - per primary team supportive care when dc consider sleep study and PFT as OP bowel regimen, stool softener and Miralax , one dose of lactulose now case discussed and evaluated by supervising physician Critical Care - Objective Last 24 Hour Vital Signs Date Time Temp Pulse Resp B/P (MAP) Pulse Ox O2 Delivery O2 Flow Rate FiO2 09/06/19 08:00 97.4 62 18 137/79 (98) 98 09/06/19 07:00 57 17 117/62 (80) 98 09/06/19 06:00 58 16 113/60 (77) 97 09/06/19 05:00 68 19 132/71 (91) 97 09/06/19 04:00 Nasal Cannula 3.0 09/06/19 04:00 97.6 62 20 136/71 (92) 97 09/06/19 04:00 59 09/06/19 03:00 61 23 133/75 (94) 98 09/06/19 02:00 61 15 115/60 (78) 97 09/06/19 01:00 65 20 114/63 (80) 97 09/06/19 00:00 61 09/06/19 00:00 Nasal Cannula 3.0 09/06/19 00:00 97.8 61 16 105/64 (78) 97 09/05/19 23:00 65 30 117/67 (84) 97 09/05/19 22:00 69 22 130/67 (88) 97 09/05/19 21:00 79 22 130/76 (94) 98 09/05/19 20:00 94 09/05/19 20:00 97.8 90 26 130/76 (94) 99 09/05/19 20:00 Nasal Cannula 5.0 09/05/19 19:00 85 23 136/78 (97) 99 09/05/19 18:00 87 23 138/82 (100) 99 09/05/19 17:00 83 25 126/74 (91) 97 09/05/19 16:00 97.6 77 24 122/76 (91) 99 09/05/19 16:00 82 09/05/19 16:00 Nasal Cannula 5.0 09/05/19 15:00 81 24 114/65 (81) 98 09/05/19 14:00 97 29 118/71 (87) 90 09/05/19 13:00 81 26 117/67 (84) 98 09/05/19 12:00 75 09/05/19 12:00 97.8 86 26 118/90 (99) 97 09/05/19 12:00 Nasal Cannula 5.0 09/05/19 11:00 81 25 131/73 (92) 96 09/05/19 10:00 84 21 142/77 (98) 96 Objective: General Appearance: no apparent distress - awake ad responsive elderly female , Lines, tubes and drains: peripheral HEENT: normocephalic, atraumatic, anicteric, mucous membranes moist, O2 via NC Neck: non-tender, supple, normal inspection Respiratory/Chest: chest wall non-tender, lungs clear, no respiratory distress , no accessory muscle use Cardiovascular/Chest: normal peripheral pulses, normal rate, regular rhythm Abdomen: normal bowel sounds, non tender, soft Extremities: non-tender, no calf tenderness, normal capillary refill, moves all extremities Skin Exam: warm/dry Neurologic: no motor/sensory deficits, alert, responsive Musculoskeletal: atrophy - BLE Micro: Microbiology Date/Time Source Procedure Growth Status 09/04/19 18:10 Nasopharynx SARS-CoV-2 RdRp Gene Assay - Final Complete 09/04/19 20:40 Rectum Received Critical Care - Subjective ROS Limited/Unobtainable: Yes Interval Events: remains in ICU on heparin drip on o2 via NC no SOB, no chest pain, + weak IVC filter placement pending K-3,2 today c/o constipation Condition: critical IV Access: peripheral EKG Rhythm: Sinus Rhythm - occas SB high 50 th FI02: 36 Drips: Heparin gtt 15 u/kg/hr I&O: Intake and Output 09/05/19 09/06/19 19:00 07:00 Intake Total 746.52 ml 386.52 ml Output Total 900 ml 300 ml Balance -153.48 ml 86.52 ml Intake Oral 420 ml 60 ml IV Total 326.52 ml 326.52 ml Output Urine Total 900 ml 300 ml # Voids 2 CXR: CXR 09/03 - Subtle patchy opacities at the left base which may related to subsegmental atelectasis. Correlate clinically to exclude the possibility of developing pneumonia. Atherosclerotic vascular calcifications. Avila Benjamin MD 09/06/19 1403: Critical Care - Asmt/Plan Assessment/Plan: Patient seen and examined with SURVEY RESEARCH PROFESSOR. Agree with above A&P as it reflects our joint deliberations. Hemodynamically stable with tolerance of heparin gtt. IVC filter agreed to by patient but can't be done until sunday. Time Spent (Minutes): 50 - cc Mandi Abreu SURVEY RESEARCH PROFESSOR Sep 06, 2019 09:09 Avila Benjamin MD Sep 06, 2019 14:03
[2019-09-06] MEDS: Docusate 100mg cap ORAL SCH (18:00)
[2019-09-06] MEDS: Miralax 17gm pkt ORAL SCH (20:43)
[2019-09-07] VITALS (24 sets, daily range): BP systolic 93–176; BP diastolic 52–115
[2019-09-07] MEDS: Heparin 25,000u/D5W 500ml (VTE/AF) IV SCH ×2 (03:57→23:09)
[2019-09-07 04:20] LABS: BASOPHILS % (AUTO) 1.2 % (0.0-2.0); EOSINOPHILS % (AUTO) 4.1 % (0.0-3.0); HEMATOCRIT 42.2 % (37.0-47.0); HEMOGLOBIN 13.8 G/DL (12.0-16.0); LYMPHOCYTES % (AUTO) 40.3 % (20.0-45.0); MEAN CORPUSCULAR VOLUME 90 FL (80-99); MONOCYTES % (AUTO) 10.4 % (1.0-10.0); PLATELET COUNT 169 K/UL (150-450); RED BLOOD COUNT 4.66 M/UL (4.20-5.40); RED CELL DISTRIBUTION WIDTH 12.9 % (11.6-14.8); WHITE BLOOD COUNT 6.8 K/UL (4.8-10.8)
[2019-09-07 04:30] LABS: ANION GAP 8 mmol/L (5-15); BLOOD UREA NITROGEN 11 mg/dL (7-18); CALCIUM 8.7 MG/DL (8.5-10.1); CARBON DIOXIDE 27 MMOL/L (21-32); CHLORIDE 102 MMOL/L (98-107); CREATININE 1.1 MG/DL (0.55-1.30); POTASSIUM 3.9 MMOL/L (3.5-5.1); SODIUM 137 MMOL/L (136-145)
[2019-09-07] MEDS: Bystolic 2.5mg Tab ORAL SCH (08:41)
[2019-09-07] MEDS: Docusate 100mg cap ORAL SCH ×2 (08:41→18:00)
[2019-09-07] MEDS: hydroCHLOROthiazide 12.5mg TAB ORAL SCH (08:42)
--- NOTE | 2019-09-07 10:54 | Pulmonolgy Critical Care Note ---
BradyMandi PRODUCTION GRAPHIC DESIGNER 09/07/19 1054: Critical Care - Asmt/Plan Assessment/Plan: ASSESSMENT Acute hypoxemic resp failure ( requiring supplemetnal O2, likely due to acute extensive PE) Acute PE bilaterally ( with hx of prior PE 2018) Elevated troponin Acute DVT R popliteal and femoral veins Bradycardia HTN Severe pulmonary HTN Hypokalemia-resolved DM HLD CHF r/o COVID 19 -rapid NGT constipation -resolved PLAN OF CARE tele O2 titrate to keep sat above 92%, currently on NC pulm toilet with heparin gtt for now, given second episode of PE will need a/c for a long time Venous Duplex -> DVT involving the right popliteal and femoral veins reoccurrence of PE most likely due to DVT, secondary to sedentary lifestyle IVC filter placement pending, on Sunday serial troponin, minimally elevated ECHO with pEG 65%, moderate TR, RVSP of 65, c/w severe pulmonary HTN elevated troponin likely due to extensive PE BB stopped due to bradycardia in , nitro cardio eval - per attending pending diuretics: Lasix and HcTZ, monitor volumes and cardiorenal parameters BP management, currently stable added GI prophylaxis K and Mg stable BS management - per primary team supportive care when dc consider sleep study and PFT as OP had 2 large BM after Lactulose x1 continue stool softener and Miralax case discussed and evaluated by supervising physician Critical Care - Objective Last 24 Hour Vital Signs Date Time Temp Pulse Resp B/P (MAP) Pulse Ox O2 Delivery O2 Flow Rate FiO2 09/07/19 06:00 59 21 119/67 (84) 98 09/07/19 05:00 52 15 98/52 (67) 100 09/07/19 04:00 54 09/07/19 04:00 Nasal Cannula 3.0 09/07/19 04:00 54 16 113/74 (87) 100 09/07/19 03:00 55 14 93/58 (70) 99 09/07/19 02:00 60 21 119/59 (79) 99 09/07/19 01:00 55 23 118/61 (80) 100 09/07/19 00:00 Nasal Cannula 3.0 09/07/19 00:00 59 09/07/19 00:00 59 21 109/60 (76) 100 09/06/19 23:00 58 17 113/58 (76) 99 09/06/19 22:00 62 20 135/63 (87) 100 09/06/19 21:00 61 22 122/62 (82) 100 09/06/19 20:00 98.3 61 16 120/64 (82) 96 09/06/19 20:00 Nasal Cannula 3.0 09/06/19 20:00 61 09/06/19 19:00 57 19 128/54 (78) 96 09/06/19 18:00 58 16 109/56 (73) 97 09/06/19 17:00 61 22 122/62 (82) 100 09/06/19 16:00 61 23 130/69 (89) 100 09/06/19 16:00 Nasal Cannula 3.0 09/06/19 16:00 60 09/06/19 15:00 64 23 129/73 (91) 98 09/06/19 14:00 65 22 126/71 (89) 98 09/06/19 13:00 64 23 126/67 (86) 98 09/06/19 12:00 67 09/06/19 12:00 Nasal Cannula 3.0 09/06/19 12:00 98.3 65 22 124/72 (89) 99 09/06/19 11:00 69 23 143/80 (101) 100 Objective: General Appearance: no apparent distress - awake ad responsive elderly female , Lines, tubes and drains: peripheral HEENT: normocephalic, atraumatic, anicteric, mucous membranes moist, O2 via NC Neck: non-tender, supple, normal inspection Respiratory/Chest: chest wall non-tender, lungs clear, no respiratory distress , no accessory muscle use Cardiovascular/Chest: normal peripheral pulses, normal rate, regular rhythm Abdomen: normal bowel sounds, non tender, soft Extremities: non-tender, no calf tenderness, normal capillary refill, moves all extremities Skin Exam: warm/dry Neurologic: no motor/sensory deficits, alert, responsive Musculoskeletal: atrophy BLE Micro: Microbiology Date/Time Source Procedure Growth Status 09/04/19 20:40 Nasal Nares MRSA Culture - Final NO METHICILLIN RESISTANT STAPH AUREUS... Complete 09/04/19 18:10 Nasopharynx SARS-CoV-2 RdRp Gene Assay - Final Complete 09/04/19 20:40 Rectum - Final NO CARBAPENEM-RESISTANT ENTEROBACTERI... Complete 09/04/19 20:40 Rectum VRE Culture - Final NO VANCOMYCIN RESISTANT ENTEROCOCCUS ... Complete Critical Care - Subjective ROS Limited/Unobtainable: No Interval Events: no fever, chills no SOB, no CP pulse ox stable on o2 3 L via NC on heparin gtt, HH stable K stable after replacement had 2 large BM yesterday Condition: critical IV Access: peripheral EKG Rhythm: Sinus Bradycardia FI02: 36 Drips: Heparin gtt 15 u/hr I&O: Intake and Output 09/06/19 09/07/19 19:00 07:00 Intake Total 1710.217 ml 459.04 ml Output Total 1100 ml 300 ml Balance 610.217 ml 159.04 ml Intake Oral 1400 ml 240 ml IV Total 300.217 ml 219.04 ml Other 10 ml Output Urine Total 1100 ml 300 ml # Bowel Movements 2 CXR: CXR 09/03 - Subtle patchy opacities at the left base which may related to subsegmental atelectasis. Correlate clinically to exclude the possibility of developing pneumonia. Atherosclerotic vascular calcifications. Avila Benjamin MD 09/07/19 1109: Critical Care - Asmt/Plan Assessment/Plan: Patient seen and examined with PRODUCTION GRAPHIC DESIGNER. Agree with above A&P as it reflects our joint deliberations. Time Spent (Minutes): 50 - cc Mandi Abreu NP Sep 07, 2019 10:54 Avila Benjamin MD Sep 07, 2019 11:09
--- NOTE | 2019-09-07 15:10 | Cardiology Progress Note ---
Assessment/Plan Assessment/Plan not sure she was on eliquis 2.5 mg bid only [facility] *(per pmd not form [facility]) rv apper hypokinteic but nto see new as noted id priro card chart 2019 as well [id number] Objective Last 24 Hour Vital Signs Date Time Temp Pulse Resp B/P (MAP) Pulse Ox O2 Delivery O2 Flow Rate FiO2 09/07/19 14:00 67 23 135/79 (97) 96 09/07/19 13:00 61 23 134/72 (92) 94 09/07/19 12:00 94 09/07/19 12:00 98.6 90 20 147/78 (101) 97 09/07/19 12:00 Room Air 09/07/19 11:00 58 22 127/65 (85) 94 09/07/19 10:00 78 21 143/115 (124) 98 09/07/19 09:00 60 23 132/67 (88) 96 09/07/19 08:00 Nasal Cannula 3.0 09/07/19 08:00 98.4 61 20 147/89 (108) 99 09/07/19 08:00 54 09/07/19 07:00 57 19 119/62 (81) 98 09/07/19 06:00 59 21 119/67 (84) 98 09/07/19 05:00 52 15 98/52 (67) 100 09/07/19 04:00 54 09/07/19 04:00 Nasal Cannula 3.0 09/07/19 04:00 54 16 113/74 (87) 100 09/07/19 03:00 55 14 93/58 (70) 99 09/07/19 02:00 60 21 119/59 (79) 99 09/07/19 01:00 55 23 118/61 (80) 100 09/07/19 00:00 Nasal Cannula 3.0 09/07/19 00:00 59 09/07/19 00:00 59 21 109/60 (76) 100 09/06/19 23:00 58 17 113/58 (76) 99 09/06/19 22:00 62 20 135/63 (87) 100 09/06/19 21:00 61 22 122/62 (82) 100 09/06/19 20:00 98.3 61 16 120/64 (82) 96 09/06/19 20:00 Nasal Cannula 3.0 09/06/19 20:00 61 09/06/19 19:00 57 19 128/54 (78) 96 09/06/19 18:00 58 16 109/56 (73) 97 09/06/19 17:00 61 22 122/62 (82) 100 09/06/19 16:00 61 23 130/69 (89) 100 09/06/19 16:00 Nasal Cannula 3.0 09/06/19 16:00 60 Intake and Output 09/06/19 09/07/19 19:00 07:00 Intake Total 1710.217 ml 486.25 ml Output Total 1100 ml 300 ml Balance 610.217 ml 186.25 ml Intake Oral 1400 ml 240 ml IV Total 300.217 ml 246.25 ml Other 10 ml Output Urine Total 1100 ml 300 ml # Bowel Movements 2 Laboratory Tests Test 09/07/19 04:11 White Blood Count 6.8 K/UL (4.8-10.8) Red Blood Count 4.66 M/UL (4.20-5.40) Hemoglobin 13.8 G/DL (12.0-16.0) Hematocrit 42.2 % (37.0-47.0) Mean Corpuscular Volume 90 FL (80-99) Mean Corpuscular Hemoglobin 29.6 PG (27.0-31.0) Mean Corpuscular Hemoglobin Concent 32.7 G/DL (32.0-36.0) Red Cell Distribution Width 12.9 % (11.6-14.8) Platelet Count 169 K/UL (150-450) Mean Platelet Volume 8.6 FL (6.5-10.1) Neutrophils (%) (Auto) 44.0 % (45.0-75.0) L Lymphocytes (%) (Auto) 40.3 % (20.0-45.0) Monocytes (%) (Auto) 10.4 % (1.0-10.0) H Eosinophils (%) (Auto) 4.1 % (0.0-3.0) H Basophils (%) (Auto) 1.2 % (0.0-2.0) Activated Partial Thromboplast Time 79 SEC (23-33) H Sodium Level 137 MMOL/L (136-145) Potassium Level 3.9 MMOL/L (3.5-5.1) Chloride Level 102 MMOL/L (98-107) Carbon Dioxide Level 27 MMOL/L (21-32) Anion Gap 8 mmol/L (5-15) Blood Urea Nitrogen 11 mg/dL (7-18) Creatinine 1.1 MG/DL (0.55-1.30) Estimat Glomerular Filtration Rate 57.4 mL/min (>60) Glucose Level 132 MG/DL (74-106) H Calcium Level 8.7 MG/DL (8.5-10.1) Microbiology Date/Time Source Procedure Growth Status 09/04/19 20:40 Nasal Nares MRSA Culture - Final NO METHICILLIN RESISTANT STAPH AUREUS... Complete 09/04/19 18:10 Nasopharynx SARS-CoV-2 RdRp Gene Assay - Final Complete 09/04/19 20:40 Rectum - Final NO CARBAPENEM-RESISTANT ENTEROBACTERI... Complete 09/04/19 20:40 Rectum VRE Culture - Final NO VANCOMYCIN RESISTANT ENTEROCOCCUS ... Complete Edmundo Bolaños MD Sep 07, 2019 15:10
[2019-09-07] MEDS: Miralax 17gm pkt ORAL SCH ×2 (20:49→21:38)
[2019-09-08] VITALS (33 sets, daily range): BP systolic 113–162; BP diastolic 62–87
--- NOTE | 2019-09-08 01:15 | Consultation ---
DATE OF CONSULTATION: 09/07/2019 CARDIOLOGY CONSULTATION CONSULTING PHYSICIAN: Edmundo Bolaños MD. REFERRING PHYSICIAN: Papo Mcarthur MD and Maryellen Benjamin MD. REASON FOR REFERRAL: Bradycardia. HISTORY OF PRESENT ILLNESS: This is an 84-year-old female who is usually followed by [facility]. She has a basically history of multiple medical problems who was admitted to the hospital. She tells me she came into the hospital because of low back pain. She denies having had any chest pains or shortness of breath. The emergency room physician's note indicated that patient came in because of shortness of breath. She apparently told them that she was short of breath on that day. Denies any chest pain or fevers or coughing. EMS were summoned to her house. Saturations on room air were 80%, required oxygen. The patient was transferred to the emergency room at [facility] where extensive workup was performed. She was tachycardic on room air. CT pulmonary angiogram was performed, which showed bilateral pulmonary embolism, right greater than left. Started on anticoagulation with heparin, was admitted to the intensive care unit. Had a bout of bradycardia and this consultation was requested. Denies any chest pain or pressure. No PND. No orthopnea although she likes the head of the bed up for comfort not because of shortness of breath. No dizziness or lightheadedness on standing. She did have a bout of palpitation on the day that she was admitted. She denies any pain in her chest with respirations and she denies any swelling or pain in her legs, just in her back. PAST MEDICAL HISTORY: Extensively documented at [facility]. She has a history of hypercoagulable state, history of obesity, hypertension, depression, history of transient ischemic attack and CVA on aspirin and Plavix, history of gout, history of congestive heart failure, chronic low back pain, pulmonary embolisms large central bilaterally extended to all lobes and multiple segments complicated by right ventricular strain, lower extremity deep venous thrombosis of femoral, popliteal, peroneal, gastrocnemius, history of GI bleed status post endoscopy in 2005, gastric AVM status post cauterization, multiple colonic polyps including bleeding polyps in the rectum status post polypectomy, history of distal esophageal endoscopy, obesity, tinnitus, thyromegaly, adjustment disorder, history of palpitations. She has had a history of IVC filter placement, hysterectomy. IVC filter apparently eventually removed. SOCIAL HISTORY: She is . Denies any alcohol or tobacco or drug use. FAMILY HISTORY: No significant oncologic disorders. MEDICATIONS AT HOME: Have been listed as including Lipitor 40, allopurinol 300 mg, metformin XR 500, [place], Bystolic 5 mg, felodipine of 10 mg, diclofenac gel, Eliquis 2.5 mg tablets 2 times a day, and Advil 400 mg every 6 hours. At least her medication list according to her primary care physician that saw her in the office in July indicated Eliquis of 2.5 mg. REVIEW OF SYSTEMS: GASTROINTESTINAL: She denies. GENITOURINARY: She denies. PULMONARY: She denies. CONSTITUTIONAL: She denies. NEUROLOGICAL: She denies. PHYSICAL EXAMINATION: GENERAL: Shows to be overweight elderly female, in no respiratory distress. NECK: Supple. No jugular venous distention. LUNGS: Clear to auscultation, percussion. CARDIAC: S1 is normal. S2 is normal. Regular rate and rhythm. No heaves, thrills, or gallops noted. ABDOMEN: Soft, nontender. Positive bowel sounds. EXTREMITIES: There is no clubbing, cyanosis, or edema. NEUROLOGICAL: She is awake, alert, responsive. LABORATORY AND DIAGNOSTIC DATA: Her cardiology rhythm strips indicate sinus rhythm. She did have a bout of sinus bradycardia with heart rates in the 50s range. She has T-wave inversions in multiple leads on her EKG. EKG showed sinus rhythm with incomplete left bundle-branch morphology defect with T-wave inversion in 1, V2, and V1 through V6 more extensively and they appear to be similar to what she has had on prior occasions at [facility] on direct comparison. Her echocardiogram was just performed. I had a chance to review it personally, shows left ventricle to have normal left function. The right ventricle appears hypokinetic. There is some evidence of pulmonary hypertension on the EKG. ASSESSMENT AND PLAN: 1. Episode of sinus bradycardia, on beta-blockers. 2. Recurrent bilateral pulmonary embolism. 3. Deep venous thrombosis. 4. History of hypercoagulable state. 5. Obesity. 6. RV systolic dysfunction. This patient was seen in cardiac consultation. The echocardiogram as mentioned was personally reviewed. 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 He did mention that the patient did have some right ventricular systolic dysfunction at that time as well, so it is possible some of these changes are chronic in nature, at least side effects and not an acute issue. Nevertheless, the patient requires anticoagulation for and she was on Eliquis according to her primary care physician 2.5 mg twice a day. Not sure why the dose was only half standard, but she probably will require at least 5 mg twice a day. She is hemodynamically stable at the present time. Her beta-blockers have been discontinued in light of the fact that the patient had some episode of bradycardia that may be related to either beta-blockers. She has been some diastolic previously as well, but she has never gotten bradycardic to that extent apparently at least that we know of. Nevertheless that may be a vagal stimulation as well at the time of her bradycardia. We will follow the patient on telemetry. If needed the beta-blockers will be resumed if she becomes too tachycardic. Her cardiac enzymes will be repeated to assure that they will be on a downward trend. She has had 2 that have been relatively stable. She has not had any checked recently. Her blood pressure appears to be relatively well and her heart rate is 67 at this time. I will follow the patient along with you. We will discuss with Dr. Benjamin if he feels that in light of the fact that she has hypercoagulable states whether COVID-19 repetition may be of use. Edmundo Bolaños M.D. DR: LUCIAN JOB#: [id number] CC:
[2019-09-08 04:33] LABS: BASOPHILS % (AUTO) 1.3 % (0.0-2.0); EOSINOPHILS % (AUTO) 4.2 % (0.0-3.0); HEMATOCRIT 44.3 % (37.0-47.0); HEMOGLOBIN 14.5 G/DL (12.0-16.0); LYMPHOCYTES % (AUTO) 39.9 % (20.0-45.0); MEAN CORPUSCULAR VOLUME 91 FL (80-99); MONOCYTES % (AUTO) 11.8 % (1.0-10.0); NEUTROPHILS % (AUTO) 42.8 % (45.0-75.0); PLATELET COUNT 172 K/UL (150-450); RED BLOOD COUNT 4.87 M/UL (4.20-5.40); RED CELL DISTRIBUTION WIDTH 12.9 % (11.6-14.8); WHITE BLOOD COUNT 5.7 K/UL (4.8-10.8)
[2019-09-08 04:51] LABS: ANION GAP 8 mmol/L (5-15); BLOOD UREA NITROGEN 11 mg/dL (7-18); CALCIUM 9.4 MG/DL (8.5-10.1); CARBON DIOXIDE 29 MMOL/L (21-32); CHLORIDE 102 MMOL/L (98-107); CREATININE 1.1 MG/DL (0.55-1.30); POTASSIUM 3.4 MMOL/L (3.5-5.1); SODIUM 138 MMOL/L (136-145)
[2019-09-08 08:39] LABS: INR 1.2 (0.9-1.1)
[2019-09-08] MEDS: Docusate 100mg cap ORAL SCH ×2 (09:00→17:11)
[2019-09-08] MEDS ORDERED: Heparin1,000 units/500ml Premix(Conc:2 units/ml) IV SCH (09:45)
[2019-09-08] MEDS: hydroCHLOROthiazide 12.5mg TAB ORAL SCH (09:58)
--- NOTE | 2019-09-08 10:00 | Pulmonolgy Critical Care Note ---
Mandi Abreu [employer] 09/08/19 1000: Critical Care - Asmt/Plan Assessment/Plan: ASSESSMENT Acute hypoxemic resp failure ( requiring supplemetnal O2, likely due to acute extensive PE) Acute PE bilaterally ( with hx of prior PE 2018) Elevated troponin Acute DVT R popliteal and femoral veins Bradycardia probably due to BB HTN Severe pulmonary HTN Hypokalemia-resolved DM HLD CHF r/o COVID 19 -rapid NGT constipation -resolved PLAN OF CARE ICU O2 titrate to keep sat above 92%, currently on NC pulm toilet with heparin gtt given second episode of PE will need a/c for a long time Venous Duplex -> DVT involving the right popliteal and femoral veins reoccurrence of PE most likely due to DVT, secondary to sedentary lifestyle IVC filter placement pending for this afternoon hold heparin gtt prior ->per radiologist MD orourke serial troponin, minimally elevated last two troponin 09/06 afternoon and this am 09/07 -NGT ECHO with pEG 65%, moderate TR, RVSP of 65, c/w severe pulmonary HTN elevated troponin likely due to extensive PE BB stopped due to bradycardia in 40th, nitro , HR better cardio eval -appreciated diuretics: Lasix and HcTZ, monitor volumes and cardiorenal parameters BP management, currently stable GI prophylaxis BS management - per primary team supportive care when dc consider sleep study and PFT as OP had 2 large BM after Lactulose x1 continue stool softener and Miralax case discussed and evaluated by supervising physician Critical Care - Objective Last 24 Hour Vital Signs Date Time Temp Pulse Resp B/P (MAP) Pulse Ox O2 Delivery O2 Flow Rate FiO2 09/08/19 08:00 59 09/08/19 07:00 65 16 133/63 (86) 99 09/08/19 06:00 57 16 128/62 (84) 100 09/08/19 05:00 60 21 142/68 (92) 100 09/08/19 04:00 Nasal Cannula 2.0 09/08/19 04:00 61 09/08/19 04:00 98.8 56 14 115/62 (79) 99 09/08/19 03:00 62 20 137/66 (89) 100 09/08/19 02:00 62 17 126/63 (84) 100 09/08/19 01:48 Nasal Cannula 2.0 09/08/19 01:00 69 17 113/67 (82) 93 09/08/19 00:00 Room Air 09/08/19 00:00 98.8 70 20 133/66 (88) 95 09/08/19 00:00 73 09/07/19 23:00 72 20 122/75 (91) 94 09/07/19 22:00 74 22 141/75 (97) 95 09/07/19 21:00 88 22 139/76 (97) 95 09/07/19 20:00 98.6 75 22 148/72 (97) 95 09/07/19 20:00 Room Air 09/07/19 19:31 66 09/07/19 19:00 80 26 138/86 (103) 95 09/07/19 18:00 101 29 160/94 (116) 90 09/07/19 17:00 75 22 139/81 (100) 95 09/07/19 16:00 98.8 74 27 153/71 (98) 96 09/07/19 16:00 112 09/07/19 16:00 Room Air 09/07/19 15:00 78 20 176/81 (112) 98 09/07/19 14:00 67 23 135/79 (97) 96 09/07/19 13:00 61 23 134/72 (92) 94 09/07/19 12:00 94 09/07/19 12:00 98.6 90 20 147/78 (101) 97 09/07/19 12:00 Room Air 09/07/19 11:00 58 22 127/65 (85) 94 09/07/19 10:00 78 21 143/115 (124) 98 Objective: General Appearance: no apparent distress - awake and responsive elderly very pleasant female , Lines, tubes and drains: peripheral HEENT: normocephalic, atraumatic, anicteric, mucous membranes moist, O2 via NC Neck: non-tender, supple, normal inspection Respiratory/Chest: chest wall non-tender, lungs clear, no respiratory distress , no accessory muscle use Cardiovascular/Chest: normal peripheral pulses, normal rate, regular rhythm Abdomen: normal bowel sounds, non tender, soft Extremities: non-tender, no calf tenderness, normal capillary refill, moves all extremities Skin Exam: warm/dry Neurologic: no motor/sensory deficits, alert, responsive Musculoskeletal: atrophy BLE Critical Care - Subjective ROS Limited/Unobtainable: No Interval Events: on Heparin gtt no CP no SOB IVC filter scheduled for this afternoon afebrile HR stable, off BB seen by cardio yesterday Condition: critical EKG Rhythm: Sinus Rhythm FI02: 36 Drips: 15 u/kg/hr I&O: Intake and Output 09/07/19 09/08/19 19:00 07:00 Intake Total 503.73 ml 322.4385 ml Balance 503.73 ml 322.4385 ml Intake Oral 150 ml 0 ml IV Total 353.73 ml 322.4385 ml # Voids 5 6 Radames Lozano MD 09/08/19 1406: Critical Care - Asmt/Plan Problems: (1) DVT (deep venous thrombosis) (2) Pulmonary air embolism (3) Bilateral pulmonary embolism (4) Shortness of breath (5) Hypoxia (6) CHF (congestive heart failure) (7) Diabetes (8) Hyperlipidemia Respiratory: monitor respiratory rate, adjust FIO2 Cardiac: continue to monitor HR/BP Renal: check electrolytes Endocrine: monitor blood sugar Hematologic: other - IVUH, going for IVCF, can likely transition to PO A/C next 1-2 days Disposition: keep in ICU - overnight Time Spent (Minutes): 40 Notes Reviewed: it security administrator Discussed with: nurses, consultants Critical Care - Objective Status: awake Condition: improving HEENT: atraumatic Lungs: clear Heart: HR/BP stable Abdomen: soft, non-tender, active bowel sounds, feeding tube Critical Care - Subjective ROS Limited/Unobtainable: Yes Interval Events: GOING FOR IVCF Condition: improving IV Access: peripheral EKG Rhythm: Sinus Rhythm Drips: IVUH CXR: Laboratory Tests 09/07/19 16:15: Troponin I 0.009 09/08/19 04:20: Troponin I 0.016, White Blood Count 5.7, Red Blood Count 4.87, Hemoglobin 14.5, Hematocrit 44.3, Mean Corpuscular Volume 91, Mean Corpuscular Hemoglobin 29.7, Mean Corpuscular Hemoglobin Concent 32.7, Red Cell Distribution Width 12.9, Platelet Count 172, Mean Platelet Volume 8.0, Neutrophils (%) (Auto) 42.8L, Lymphocytes (%) (Auto) 39.9, Monocytes (%) (Auto) 11.8H, Eosinophils (%) (Auto) 4.2H, Basophils (%) (Auto) 1.3, Prothrombin Time 12.9H, Prothromb Time International Ratio 1.2H, Activated Partial Thromboplast Time 84H, Sodium Level 138, Potassium Level 3.4L, Chloride Level 102, Carbon Dioxide Level 29, Anion Gap 8, Blood Urea Nitrogen 11, Creatinine 1.1, Estimat Glomerular Filtration Rate 57.4, Glucose Level 134H, Calcium Level 9.4, Pro-B-Type Natriuretic Peptide 709H Mandi Abreu NP Sep 08, 2019 10:00 Radames Lozano MD Sep 08, 2019 14:06
[2019-09-08] MEDS ORDERED: fentaNYL 100 mcg/2 mL IV ONE (13:34)
[2019-09-08] MEDS ORDERED: fentaNYL 100 mcg/2 mL IV PRN (13:45)
--- NOTE | 2019-09-08 13:51 | Pre-Procedure Note/Attestation ---
Pre-Procedure Note/Attestation Complete Prior to Procedure Planned Procedure: not applicable Procedure Narrative: IVC filter Indications for Procedure Pre-Operative Diagnosis: recurrent PE Attestation I attest that I discussed the nature of the procedure; its benefits; risks and complications; and alternatives (and the risks and benefits of such alternatives ), prior to the procedure, with the patient (or the patient's legal retail service representative). I attest that, if there was a reasonable possibility of needing a blood transfusion, the patient (or the patient's legal retail service representative) was given the [facility] standardized written summary, pursuant to the [place] Blood Safety Act ([place] Health and Safety Code # 1645, as amended). I attest that I re-evaluated the patient just prior to the surgery and that there has been no change in the patient's H&P, except as documented below: Discussed in person with pt., and by phone with granddaughter Perry Marrero MD Sep 08, 2019 13:51
--- NOTE | 2019-09-08 13:52 | Moderate Sedation - Procedural ---
Moderate Sedation HPI Home Medication Reported Medications [CILNIDIPINE 10mg] No Conflict Check, 10 MG PO DAILY for HTN 09/05/19 Hydrochlorothiazide* (HYDROCHLOROTHIAZIDE*) 12.5 Mg Tablet, 12.5 MG ORAL DAILY for DIURETIC, TAB 09/05/19 Nebivolol Hcl* (BYSTOLIC*) 2.5 Mg Tablet, 2.5 MG ORAL DAILY for HTN, TAB 09/05/19 Patient History Allergies: Coded Allergies: No Known Allergies (Unverified , 09/04/19) Pre-Procedural Mod Sedation Date: Sep 08, 2019 Pre-Assessment Time: 13:52 Pre-Sedation Assessment: Eval. Immed. Prior to Sed Airway Assessment (Malampati): III Evaluation Hx of untoward rxns to mod sed: No Procedures/Plans: Radiology Plan for Moderate Sedation: Fentanyl ASA Score: II Informed Consent The nature of the procedure/sedation; its benefits; risks and complications; and alternatives (and the risks and benefits of such alternatives) were discussed with the patient (or their legal member service representative), prior to the procedure. All questions were answered to the patient's (or their legal member service representative's) satisfaction and the patient (or their legal member service representative) gave informed consent to the procedure. I attest that I re-evaluated the patient just prior to the surgery and that there has been no change in the patient's H&P, except as documented below: Post Procedure Assessment Post Procedure TIme: 14:23 Communication: No Apparent Limitation Mental Status: Awake Respiration: Unlabored Skin Condition: WNL Adomen: WNL Nausea: NO Vomiting: NO Perry Robertson MD Sep 08, 2019 13:52
--- NOTE | 2019-09-08 14:23 | Brief Operative Note ---
Immediate Post Operative Note Operative Note Pre-op Diagnosis: recurrent PE Procedure: IVC filter Post-op Diagnosis: same as pre-op Findings: consistent w/pre-op dx studies Surgeon: Raymond Escobar Anesthesia: local, moderate sedation Specimen: none Complications: none Fluids: none Implant(s) used?: Yes - Argon Option Elite IVC filter Perry Escobar MD Sep 08, 2019 14:23
--- NOTE | 2019-09-08 17:25 | Diagnostic Imaging Report ---
Indications: Recurrent pulmonary embolus despite anticoagulation Technique: Case discussed with referring physician Dr. Benjamin, but indicated preference for a removable filter. Informed consent obtained prior to commencement of the procedure. Total sterile technique, including sterile probe cover and sterile gel, sterile gloves, hand hygiene, hat, mask,, sterile gown, large sterile drape, and preparation with 2% chlorhexidine utilized. Local anesthesia with 1% lidocaine. Ultrasound reveals patent compressible right internal jugular vein. Under real-time ultrasound guidance, puncture right internal jugular vein with 19-gauge needle, passage of 0.035 guidewire, into the inferior vena cava, , over which was passed a Kumpe catheter. This was directed into the left common iliac vein, and a limited iliac venogram performed using hand injection of contrast. Catheter was exchange for a pigtail marker catheter which was placed at the level of the iliac venous confluence.. An inferior venacavogram performed, using machine injection of contrast. The images were reviewed. The position of the renal veins was determined. The catheter was then exchanged for the introducer assembly of Option Elite inferior vena cava filter The introducer assembly was advanced further into the inferior vena cava over a guidewire, and the guidewire and dilator were removed. The filter was passed into the into the sheath. It was then positioned into the appropriate position. The filter was then deployed by unsheathing it. The filter introducer was removed, and a followup inferior venacavogram was performed using hand injection of contrast through the sheath. The filter position was deemed acceptable. The sheath was removed. Pressure held on the right neck until hemostasis was achieved. The patient tolerated procedure well, without immediate complication. Total fluoroscopy time 240 seconds Total dose area product 1.1 mGym2 Comparison: none. Findings:Left iliac venogram demonstrates no evidence of caval anomaly. Inferior venacavogram demonstrates normal caliber inferior vena cava. Single renal veins. No intracaval thrombus. Completion inferior venacavogram demonstrates satisfactory filter position, with no significant tilt. Impression: Successful placement of removal infrarenal inferior vena cava filter, as above. Please plan for referral for filter removal as soon as this is deemed safe and appropriate
[2019-09-08] MEDS: Miralax 17gm pkt ORAL SCH (20:46)
--- NOTE | 2019-09-08 20:47 | Cardiology Progress Note ---
Assessment/Plan Assessment/Plan 1. Episode of sinus bradycardia, on beta-blockers. 2. Recurrent bilateral pulmonary embolism. 3. Deep venous thrombosis. 4. History of hypercoagulable state. 5. Obesity. 6. RV systolic dysfunction. s/p ivc filter looks good hope to dc from icu soon but keep on telel for maida monitoring none of her meds cause maida as listed trop neg was on eliquis 2.5 mg bid only [place] *(per pmd not form [place]) rv appear hypokinetic but nto see new as noted id prior card chart 2019 as well consider swtih to doac soon mild maida noted off bb since yest Subjective Cardiovascular: Denies: chest pain, lightheadedness, palpitations Respiratory: Denies: shortness of breath Genitourinary: Denies: burning Subjective back pain due toher position at time of ivc placement Objective Last 24 Hour Vital Signs Date Time Temp Pulse Resp B/P (MAP) Pulse Ox O2 Delivery O2 Flow Rate FiO2 09/08/19 20:00 Room Air 09/08/19 20:00 68 09/08/19 19:00 97.6 72 21 132/71 (91) 96 09/08/19 18:00 74 20 126/64 (84) 94 09/08/19 17:00 80 17 154/81 (105) 97 09/08/19 17:00 59 22 144/73 (96) 98 09/08/19 16:00 Nasal Cannula 2.0 09/08/19 16:00 50 09/08/19 16:00 72 20 132/66 (88) 96 09/08/19 16:00 98.3 60 21 132/68 (89) 96 09/08/19 15:23 97.2 58 16 100 Nasal Cannula 3.0 61 100 100 09/08/19 15:07 76 21 2.0 09/08/19 15:00 82 20 144/73 (96) 96 09/08/19 15:00 50 15 149/63 (91) 100 09/08/19 14:45 52 20 151/75 (100) 100 09/08/19 14:30 58 22 146/76 (99) 100 09/08/19 14:15 58 151/79 (103) 09/08/19 13:15 61 15 155/85 (108) 100 7/20/20 12:55 76 21 145/87 (106) 100 09/08/19 12:00 Nasal Cannula 2.0 09/08/19 12:00 59 09/08/19 12:00 98.3 63 22 140/70 (93) 100 09/08/19 11:00 60 21 130/65 (86) 100 09/08/19 10:00 57 20 143/73 (96) 100 09/08/19 09:00 62 21 133/65 (87) 100 09/08/19 08:00 Nasal Cannula 2.0 09/08/19 08:00 98.4 55 15 127/62 (83) 99 09/08/19 08:00 59 09/08/19 07:00 65 16 133/63 (86) 99 09/08/19 06:00 57 16 128/62 (84) 100 09/08/19 05:00 60 21 142/68 (92) 100 09/08/19 04:00 Nasal Cannula 2.0 09/08/19 04:00 61 09/08/19 04:00 98.8 56 14 115/62 (79) 99 09/08/19 03:00 62 20 137/66 (89) 100 09/08/19 02:00 62 17 126/63 (84) 100 09/08/19 01:48 Nasal Cannula 2.0 09/08/19 01:00 69 17 113/67 (82) 93 09/08/19 00:00 Room Air 09/08/19 00:00 98.8 70 20 133/66 (88) 95 09/08/19 00:00 73 09/07/19 23:00 72 20 122/75 (91) 94 09/07/19 22:00 74 22 141/75 (97) 95 09/07/19 21:00 88 22 139/76 (97) 95 General Appearance: no apparent distress, alert Neck: supple Cardiovascular: normal rate Respiratory/Chest: lungs clear Abdomen: normal bowel sounds, non tender, soft Extremities: no swelling Intake and Output 09/07/19 09/08/19 19:00 07:00 Intake Total 503.73 ml 322.4385 ml Balance 503.73 ml 322.4385 ml Intake Oral 150 ml 0 ml IV Total 353.73 ml 322.4385 ml # Voids 5 6 Laboratory Tests Test 09/08/19 04:20 White Blood Count 5.7 K/UL (4.8-10.8) Red Blood Count 4.87 M/UL (4.20-5.40) Hemoglobin 14.5 G/DL (12.0-16.0) Hematocrit 44.3 % (37.0-47.0) Mean Corpuscular Volume 91 FL (80-99) Mean Corpuscular Hemoglobin 29.7 PG (27.0-31.0) Mean Corpuscular Hemoglobin Concent 32.7 G/DL (32.0-36.0) Red Cell Distribution Width 12.9 % (11.6-14.8) Platelet Count 172 K/UL (150-450) Mean Platelet Volume 8.0 FL (6.5-10.1) Neutrophils (%) (Auto) 42.8 % (45.0-75.0) L Lymphocytes (%) (Auto) 39.9 % (20.0-45.0) Monocytes (%) (Auto) 11.8 % (1.0-10.0) H Eosinophils (%) (Auto) 4.2 % (0.0-3.0) H Basophils (%) (Auto) 1.3 % (0.0-2.0) Prothrombin Time 12.9 SEC (9.30-11.50) H Prothromb Time International Ratio 1.2 (0.9-1.1) H Activated Partial Thromboplast Time 84 SEC (23-33) H Sodium Level 138 MMOL/L (136-145) Potassium Level 3.4 MMOL/L (3.5-5.1) L Chloride Level 102 MMOL/L (98-107) Carbon Dioxide Level 29 MMOL/L (21-32) Anion Gap 8 mmol/L (5-15) Blood Urea Nitrogen 11 mg/dL (7-18) Creatinine 1.1 MG/DL (0.55-1.30) Estimat Glomerular Filtration Rate 57.4 mL/min (>60) Glucose Level 134 MG/DL (74-106) H Calcium Level 9.4 MG/DL (8.5-10.1) Troponin I 0.016 ng/mL (0.000-0.056) Pro-B-Type Natriuretic Peptide 709 pg/mL (0-125) H Edmundo Bolaños MD Sep 08, 2019 20:47
--- NOTE | 2019-09-08 23:36 | Internal Med Progress Note ---
Subjective Physician Name Papo Mcarthur Attending Physician Papo Mcarthur MD Current Medications Medications (Trade) Dose Ordered Sig/Francisca Route PRN Reason Start Time Stop Time Status Last Admin Dose Admin Acetaminophen (Tylenol) 650 mg Q4H PRN ORAL T>100.5 09/04/19 19:30 10/04/19 19:29 Acetaminophen (Tylenol) 650 mg Q4H PRN ORAL Mild Pain (Pain Scale 1-3) 09/04/19 20:15 10/04/19 20:14 09/08/19 17:22 Albuterol/ Ipratropium (Albuterol/ Ipratropium) 3 ml Q4H PRN HHN Shortness of Breath 09/04/19 19:30 09/09/19 19:29 Dextrose (Dextrose 50%) 25 ml Q30M PRN IV Hypoglycemia 09/04/19 20:15 12/03/19 20:14 Dextrose (Dextrose 50%) 50 ml Q30M PRN IV Hypoglycemia 09/04/19 20:15 12/03/19 20:14 Docusate Sodium (Colace) 100 mg TWICE A DAY ORAL 09/06/19 18:00 10/06/19 17:59 09/08/19 17:11 Fentanyl Citrate (Sublimaze 100 mcg/2 mL) 100 mcg ONCE PRN IV radiology procedure 09/08/19 13:45 09/08/19 23:59 Heparin Sodium/ Dextrose 500 ml @ 27.21 mls/ hr ADJUST PER PROTOCOL IV 09/05/19 04:15 10/05/19 04:14 09/07/19 23:09 Hydralazine HCl (Apresoline) 10 mg Q4H PRN IV sbp>160 mmHg 09/04/19 20:30 12/03/19 20:29 Hydrochlorothiazide (Hydrodiuril) 12.5 mg DAILY ORAL 09/05/19 11:00 10/05/19 10:59 09/08/19 09:58 Morphine Sulfate (Morphine Sulfate) 2 mg Q6H PRN IVP Moderate Pain (Pain Scale 4-6) 09/04/19 20:15 09/11/19 20:14 Nitroglycerin (Ntg) 0.4 mg Q5M PRN SL Prn Chest Pain 09/04/19 16:30 Ondansetron HCl (Zofran) 4 mg Q6H PRN IVP Nausea & Vomiting 09/04/19 20:15 10/04/19 20:14 Pantoprazole (Protonix) 40 mg DAILY ORAL 09/06/19 09:00 10/06/19 08:59 09/07/19 08:42 Polyethylene Glycol (Miralax) 17 gm BEDTIME ORAL 09/06/19 21:00 10/06/19 20:59 09/08/19 20:46 Polyethylene Glycol (Miralax) 17 gm HSPRN PRN ORAL Constipation 09/04/19 21:00 10/04/19 20:59 Temazepam (Restoril) 15 mg HSPRN PRN ORAL Insomnia 09/04/19 21:00 09/11/19 20:59 Allergies: Coded Allergies: No Known Allergies (Unverified , 09/04/19) Subjective on room air no CP s/p IVC filter off heparin g++ c/o back pain Objective Last Vital Signs Date Time Temp Pulse Resp B/P (MAP) Pulse Ox O2 Delivery O2 Flow Rate FiO2 09/08/19 22:00 67 24 136/70 (92) 94 09/08/19 20:00 Room Air 09/08/19 19:00 97.6 09/08/19 16:00 2.0 09/04/19 22:00 36 General Appearance: WD/WN, no apparent distress EENT: PERRL/EOMI, normal ENT inspection Neck: non-tender, normal alignment Cardiovascular: normal peripheral pulses, normal rate Respiratory/Chest: chest wall non-tender, lungs clear Abdomen: normal bowel sounds, non tender Extremities: normal range of motion, non-tender Edema: trace edema Skin: normal pigmentation, warm/dry Laboratory Tests Test 09/08/19 04:20 White Blood Count 5.7 K/UL (4.8-10.8) Red Blood Count 4.87 M/UL (4.20-5.40) Hemoglobin 14.5 G/DL (12.0-16.0) Hematocrit 44.3 % (37.0-47.0) Mean Corpuscular Volume 91 FL (80-99) Mean Corpuscular Hemoglobin 29.7 PG (27.0-31.0) Mean Corpuscular Hemoglobin Concent 32.7 G/DL (32.0-36.0) Red Cell Distribution Width 12.9 % (11.6-14.8) Platelet Count 172 K/UL (150-450) Mean Platelet Volume 8.0 FL (6.5-10.1) Neutrophils (%) (Auto) 42.8 % (45.0-75.0) L Lymphocytes (%) (Auto) 39.9 % (20.0-45.0) Monocytes (%) (Auto) 11.8 % (1.0-10.0) H Eosinophils (%) (Auto) 4.2 % (0.0-3.0) H Basophils (%) (Auto) 1.3 % (0.0-2.0) Prothrombin Time 12.9 SEC (9.30-11.50) H Prothromb Time International Ratio 1.2 (0.9-1.1) H Activated Partial Thromboplast Time 84 SEC (23-33) H Sodium Level 138 MMOL/L (136-145) Potassium Level 3.4 MMOL/L (3.5-5.1) L Chloride Level 102 MMOL/L (98-107) Carbon Dioxide Level 29 MMOL/L (21-32) Anion Gap 8 mmol/L (5-15) Blood Urea Nitrogen 11 mg/dL (7-18) Creatinine 1.1 MG/DL (0.55-1.30) Estimat Glomerular Filtration Rate 57.4 mL/min (>60) Glucose Level 134 MG/DL (74-106) H Calcium Level 9.4 MG/DL (8.5-10.1) Troponin I 0.016 ng/mL (0.000-0.056) Pro-B-Type Natriuretic Peptide 709 pg/mL (0-125) H Intake and Output 09/07/19 09/08/19 19:00 07:00 Intake Total 503.73 ml 322.4385 ml Balance 503.73 ml 322.4385 ml Intake Oral 150 ml 0 ml IV Total 353.73 ml 322.4385 ml # Voids 5 6 Assessment/Plan Assessment/Plan ASSESSMENT: 1. Acute PE bilaterally. 2. Obesity. 3. Sedentary secondary to lower back pain. 4. History of stroke. 5. History of PE and DVT. 6. Hypertension. 7. Diabetes. 8. Gout. 9. Lower back pain, likely lumbar spinal stenosis. 10. Deep venous thrombosis involving the right popliteal and femoral veins s/p IVC filter 09-07 11. bradycardia PLAN: 1. ICU 2. Pulmonary consult with Dr. Benjamin 3. restart Heparin drip tonight then dc in AM and start eliquis 10mg PO BID x 7 days then 5mg PO BID 4. TTE reviewed; 5. stop BB 6. The patient to be on oxygen with O2 sats at greater than 92%. 7. Lumbar and thoracic MRI in AM 8. Continue the patient's home medications. DC planning tomorrow discussed plan with patient and pulmonary Papo Mcarthur MD Sep 08, 2019 23:36
[2019-09-08] MEDS: Heparin 25,000u/D5W 500ml (VTE/AF) IV SCH (23:51)
[2019-09-09] VITALS (23 sets, daily range): BP systolic 100–167; BP diastolic 55–85
[2019-09-09 05:37] LABS: BASOPHILS % (AUTO) 0.9 % (0.0-2.0); EOSINOPHILS % (AUTO) 3.1 % (0.0-3.0); HEMATOCRIT 44.9 % (37.0-47.0); HEMOGLOBIN 14.6 G/DL (12.0-16.0); LYMPHOCYTES % (AUTO) 33.3 % (20.0-45.0); MEAN CORPUSCULAR VOLUME 91 FL (80-99); NEUTROPHILS % (AUTO) 51.8 % (45.0-75.0); PLATELET COUNT 172 K/UL (150-450); RED BLOOD COUNT 4.93 M/UL (4.20-5.40); RED CELL DISTRIBUTION WIDTH 13.2 % (11.6-14.8); WHITE BLOOD COUNT 5.1 K/UL (4.8-10.8)
[2019-09-09 05:59] LABS: ANION GAP 9 mmol/L (5-15); BLOOD UREA NITROGEN 11 mg/dL (7-18); CALCIUM 9.5 MG/DL (8.5-10.1); CARBON DIOXIDE 26 MMOL/L (21-32); CHLORIDE 101 MMOL/L (98-107); CREATININE 1.2 MG/DL (0.55-1.30); SODIUM 136 MMOL/L (136-145)
[2019-09-09] MEDS: Docusate 100mg cap ORAL SCH ×2 (09:23→18:26)
[2019-09-09] MEDS: hydroCHLOROthiazide 12.5mg TAB ORAL SCH (09:25)
[2019-09-09] MEDS: Eliquis 5mg tablet ORAL SCH ×2 (09:25→18:26)
--- NOTE | 2019-09-09 10:09 | Pulmonolgy Critical Care Note ---
Mandi Abreu [employer] 09/09/19 1009: Critical Care - Asmt/Plan Assessment/Plan: ASSESSMENT Acute hypoxemic resp failure ( requiring supplemetnal O2, likely due to acute extensive PE) -resolved Acute PE bilaterally ( with hx of prior PE 2018) s/p IVC filter placement Elevated troponin Acute DVT R popliteal and femoral veins Bradycardia probably due to BB HTN Severe pulmonary HTN Hypokalemia-resolved DM HLD CHF r/o COVID 19 -rapid NGT constipation -resolved PLAN OF CARE ICU O2 titrate to keep sat above 92%, currently on NC pulm toilet with heparin gtt given second episode of PE will need a/c for a long time Venous Duplex -> DVT involving the right popliteal and femoral veins reoccurrence of PE most likely due to DVT, secondary to sedentary lifestyle s/p IVC filter placement 09/07 now on Eliquis initially serial troponin, minimally elevated last two troponin 09/06 afternoon and am 09/07 -NGT ECHO with pEG 65%, moderate TR, RVSP of 65, c/w severe pulmonary HTN elevated troponin was likely due to extensive PE BB stopped due to bradycardia in 40th, nitro , HR better cardio eval -appreciated diuretics: Lasix and HcTZ, monitor volumes and cardiorenal parameters BP management, currently stable GI prophylaxis BS management - per primary team supportive care when dc consider sleep study and PFT as OP had 2 large BM after Lactulose x1 continue stool softener and Miralax dc plan for today per primary on Eiquis 10 mg po bid x 7 days, then 5 mg po bid case discussed and evaluated by supervising physician Critical Care - Objective Last 24 Hour Vital Signs Date Time Temp Pulse Resp B/P (MAP) Pulse Ox O2 Delivery O2 Flow Rate FiO2 09/09/19 08:36 98 Room Air 21 09/09/19 07:00 61 19 133/68 (89) 98 09/09/19 06:00 59 15 122/62 (82) 96 09/09/19 05:00 97.6 61 14 113/58 (76) 96 09/09/19 04:00 63 18 130/74 (92) 97 09/09/19 04:00 Room Air 09/09/19 03:08 63 09/09/19 03:00 64 15 101/65 (77) 09/09/19 02:00 64 15 100/58 (72) 97 09/09/19 01:00 65 17 116/74 (88) 95 09/09/19 00:00 66 09/09/19 00:00 97.8 68 21 117/68 (84) 95 09/09/19 00:00 Room Air 09/08/19 23:00 75 22 114/69 (84) 97 09/08/19 22:00 67 24 136/70 (92) 94 09/08/19 21:00 77 19 143/73 (96) 96 09/08/19 20:26 Room Air 21 09/08/19 20:00 Room Air 09/08/19 20:00 68 09/08/19 20:00 68 22 148/70 (96) 95 09/08/19 19:00 97.6 72 21 132/71 (91) 96 09/08/19 18:00 74 20 126/64 (84) 94 09/08/19 17:00 80 17 154/81 (105) 97 09/08/19 17:00 59 22 144/73 (96) 98 09/08/19 16:00 Nasal Cannula 2.0 09/08/19 16:00 50 09/08/19 16:00 72 20 132/66 (88) 96 09/08/19 16:00 98.3 60 21 132/68 (89) 96 09/08/19 15:23 97.2 58 16 100 Nasal Cannula 3.0 61 100 100 09/08/19 15:07 76 21 2.0 09/08/19 15:00 82 20 144/73 (96) 96 09/08/19 15:00 50 15 149/63 (91) 100 09/08/19 14:45 52 20 151/75 (100) 100 09/08/19 14:30 58 22 146/76 (99) 100 09/08/19 14:15 58 151/79 (103) 09/08/19 13:15 61 15 155/85 (108) 100 09/08/19 12:55 76 21 145/87 (106) 100 09/08/19 12:00 Nasal Cannula 2.0 09/08/19 12:00 59 09/08/19 12:00 98.3 63 22 140/70 (93) 100 09/08/19 11:00 60 21 130/65 (86) 100 Objective: General Appearance: awake , alert and responsive elderly very pleasant female in NAD Lines, tubes and drains: peripheral HEENT: normocephalic, atraumatic, anicteric, mucous membranes moist, O2 via NC Neck: non-tender, supple, normal inspection Respiratory/Chest: chest wall non-tender, lungs clear, no respiratory distress , no accessory muscle use Cardiovascular/Chest: normal peripheral pulses, normal rate, regular rhythm Abdomen: normal bowel sounds, non tender, soft Extremities: non-tender, no calf tenderness, normal capillary refill, moves all extremities Skin Exam: warm/dry Neurologic: no motor/sensory deficits, alert, responsive Musculoskeletal: atrophy BLE Critical Care - Subjective ROS Limited/Unobtainable: No Interval Events: s/p IVC filter 09/07 off heparin gtt and started on Eliquis no CP no SOB pulse ox stable on RA Condition: improving IV Access: peripheral EKG Rhythm: Sinus Rhythm FI02: 21 I&O: Intake and Output 09/08/19 09/09/19 19:00 07:00 Intake Total 132.0145 ml 276.1815 ml Output Total 725 ml 300 ml Balance -592.9855 ml -23.8185 ml Intake Oral 0 ml 0 ml IV Total 112.0145 ml 276.1815 ml Other 20 ml Output Urine Total 725 ml 300 ml # Voids 3 Radames Lozano MD 09/09/19 1825: Critical Care - Asmt/Plan Problems: (1) S/P IVC filter (2) DVT (deep venous thrombosis) (3) Pulmonary air embolism (4) Shortness of breath (5) Hypoxia (6) Stroke (7) Diabetes (8) Hyperlipidemia (9) HTN (hypertension) (10) CHF (congestive heart failure) Assessment/Plan: Patient seen and examined with [employer]IATE. Agree with above A&P as it reflects our joint deliberations. S/P IVCF, now on Eliquis, TTF/tele, will need OP heme eval and likely lifelong A /C, IVC removal in 3 mo CC 30 Respiratory: monitor respiratory rate Cardiac: continue to monitor HR/BP Mandi Abreu NP Sep 09, 2019 10:09 Radames Lozano MD Sep 09, 2019 18:25
[2019-09-09] MEDS ORDERED: ELIQUIS5 MG ORAL (11:42)
[2019-09-09] MEDS ORDERED: NORVASC5 MG ORAL (11:42)
--- NOTE | 2019-09-09 11:44 | Discharge Instructions ---
Discharge Instructions Discharge Instructions Follow up with: Dr. Man Hui - [phone] Diet: diabetic calorie control Resume Normal Activity?: Yes Activity: light activity For Congestive Heart Failure Reminder Report to your physician any weight gain of 5 pounds or more in one week. Papo Mcarthur MD Sep 09, 2019 11:44
--- NOTE | 2019-09-09 11:45 | Discharge Summary ---
Discharge Summary Hospital Course Date of Admission Sep 04, 2019 at 17:40 Date of Discharge Admitting Diagnosis CHF, Pulmonary embolism DESTINEE Mcfarland is a 84 year old female who was admitted on Sep 04, 2019 at 17:40 for Congestive Heart Failure,Pulmonary Embolism #[id number] Discharge Condition Upon Discharge: stable Discharge Vital Signs Last Vital Signs Date Time Temp Pulse Resp B/P (MAP) Pulse Ox O2 Delivery O2 Flow Rate FiO2 09/09/19 11:00 78 22 151/64 (93) 98 09/09/19 08:36 Room Air 21 09/09/19 08:00 97.8 09/08/19 16:00 2.0 Discharge Disposition Patient was discharged to HOME Discharge Instructions Discharge Instructions Follow up with: Dr. Man Hui - [phone] Activity: light activity Papo Mcarthur MD Sep 09, 2019 11:45
--- NOTE | 2019-09-09 14:39 | Cardiology Progress Note ---
Assessment/Plan Assessment/Plan 1. Episode of sinus bradycardia, on beta-blockers. 2. Recurrent bilateral pulmonary embolism. 3. Deep venous thrombosis. 4. History of hypercoagulable state. 5. Obesity. 6. RV systolic dysfunction. s/p ivc filter looks good hope to dc from icu soon keep on telel for maida monitoring no sig maida since yest trop neg was on eliquis 2.5 mg bid only [employer] *(per pmd not form [place]) rv appear hypokinetic but nto see new as noted id prior card chart 2019 as well now off heaprin on eliquis off bb since 2 days ago Subjective Cardiovascular: Denies: chest pain, lightheadedness, palpitations, syncope Respiratory: Denies: cough, shortness of breath, wheezing Gastrointestinal/Abdominal: Denies: abdominal pain Genitourinary: Denies: burning Subjective back pain due to her position at time of mri Objective Last 24 Hour Vital Signs Date Time Temp Pulse Resp B/P (MAP) Pulse Ox O2 Delivery O2 Flow Rate FiO2 09/09/19 14:26 72 132/71 09/09/19 14:00 72 24 132/71 (91) 94 09/09/19 12:00 70 09/09/19 12:00 98.4 70 26 144/78 (100) 97 09/09/19 11:00 78 22 151/64 (93) 98 09/09/19 10:00 67 22 167/84 (111) 98 09/09/19 09:00 64 21 142/85 (104) 98 09/09/19 08:36 98 Room Air 21 09/09/19 08:00 76 09/09/19 08:00 Room Air 09/09/19 08:00 97.8 61 19 134/73 (93) 98 09/09/19 08:00 62 09/09/19 07:00 61 19 133/68 (89) 98 09/09/19 06:00 59 15 122/62 (82) 96 09/09/19 05:00 97.6 61 14 113/58 (76) 96 09/09/19 04:00 63 18 130/74 (92) 97 09/09/19 04:00 Room Air 09/09/19 03:08 63 09/09/19 03:00 64 15 101/65 (77) 09/09/19 02:00 64 15 100/58 (72) 97 09/09/19 01:00 65 17 116/74 (88) 95 09/09/19 00:00 66 09/09/19 00:00 97.8 68 21 117/68 (84) 95 09/09/19 00:00 Room Air 09/08/19 23:00 75 22 114/69 (84) 97 09/08/19 22:00 67 24 136/70 (92) 94 09/08/19 21:00 77 19 143/73 (96) 96 09/08/19 20:26 Room Air 21 09/08/19 20:00 Room Air 09/08/19 20:00 68 09/08/19 20:00 68 22 148/70 (96) 95 09/08/19 19:00 97.6 72 21 132/71 (91) 96 09/08/19 18:00 74 20 126/64 (84) 94 09/08/19 17:00 80 17 154/81 (105) 97 09/08/19 17:00 59 22 144/73 (96) 98 09/08/19 16:00 Nasal Cannula 2.0 09/08/19 16:00 50 09/08/19 16:00 72 20 132/66 (88) 96 09/08/19 16:00 98.3 60 21 132/68 (89) 96 09/08/19 15:23 97.2 58 16 100 Nasal Cannula 3.0 61 100 100 09/08/19 15:07 76 21 2.0 09/08/19 15:00 82 20 144/73 (96) 96 09/08/19 15:00 50 15 149/63 (91) 100 09/08/19 14:45 52 20 151/75 (100) 100 General Appearance: no apparent distress, alert Neck: supple Cardiovascular: normal rate Respiratory/Chest: lungs clear Abdomen: normal bowel sounds, non tender, soft Extremities: no swelling Intake and Output 09/08/19 09/09/19 19:00 07:00 Intake Total 132.0145 ml 276.1815 ml Output Total 725 ml 300 ml Balance -592.9855 ml -23.8185 ml Intake Oral 0 ml 0 ml IV Total 112.0145 ml 276.1815 ml Other 20 ml Output Urine Total 725 ml 300 ml # Voids 3 Laboratory Tests Test 09/09/19 01:00 09/09/19 04:55 Activated Partial Thromboplast Time 66 SEC (23-33) H White Blood Count 5.1 K/UL (4.8-10.8) Red Blood Count 4.93 M/UL (4.20-5.40) Hemoglobin 14.6 G/DL (12.0-16.0) Hematocrit 44.9 % (37.0-47.0) Mean Corpuscular Volume 91 FL (80-99) Mean Corpuscular Hemoglobin 29.6 PG (27.0-31.0) Mean Corpuscular Hemoglobin Concent 32.5 G/DL (32.0-36.0) Red Cell Distribution Width 13.2 % (11.6-14.8) Platelet Count 172 K/UL (150-450) Mean Platelet Volume 9.1 FL (6.5-10.1) Neutrophils (%) (Auto) 51.8 % (45.0-75.0) Lymphocytes (%) (Auto) 33.3 % (20.0-45.0) Monocytes (%) (Auto) 11.0 % (1.0-10.0) H Eosinophils (%) (Auto) 3.1 % (0.0-3.0) H Basophils (%) (Auto) 0.9 % (0.0-2.0) Sodium Level 136 MMOL/L (136-145) Potassium Level 4.0 MMOL/L (3.5-5.1) Chloride Level 101 MMOL/L (98-107) Carbon Dioxide Level 26 MMOL/L (21-32) Anion Gap 9 mmol/L (5-15) Blood Urea Nitrogen 11 mg/dL (7-18) Creatinine 1.2 MG/DL (0.55-1.30) Estimat Glomerular Filtration Rate 52.0 mL/min (>60) Glucose Level 135 MG/DL (74-106) H Calcium Level 9.5 MG/DL (8.5-10.1) Edmundo Bolaños MD Sep 09, 2019 14:39
--- NOTE | 2019-09-09 15:37 | Diagnostic Imaging Report ---
Indication: Chronic mid back pain Technique: Sagittal T1 fast spin echo, sagittal T2 fast echo, sagittal STIR, axial T2 fast spin echo images were obtained through the thoracic spine Comparison: none Findings: Some image degradation due to motion artifact. Per technologist, patient had difficulty holding still and was breathing heavily. Large hemangioma is seen in the T10 vertebral body, smaller one is seen in the T11 vertebral body. Vertebral marrow signal is otherwise normal. Vertebral body heights are preserved. The disc spaces are preserved. The bony alignment is normal. Intrinsic cord signal is normal. No significant disc bulge or protrusion, spinal stenosis, or neural foraminal stenosis demonstrated. Included extraspinal soft tissues are unremarkable. Impression: Essentially unremarkable exam. No evidence of acute bony trauma or significant neural impingement. Incidental findings as noted
--- NOTE | 2019-09-09 15:43 | Diagnostic Imaging Report ---
Indication: Mid to low back pain Technique: Sagittal T1 and T2 fast spin echo, sagittal STIR, axial T1 and T2 fast spin-echo images of the lumbar spine Comparison: none Findings: Vertebral marrow signal is normal. The vertebral body heights are preserved. Conus medullaris terminates at the L1-2 level. There is mild degenerative disc narrowing at T12-L1. No significant disc bulge or protrusion or spinal stenosis. There is minimal degenerative disc narrowing at L1-2 there is mild circumferential annular bulge that does not significantly compromise the spinal canal or the neural foramina. There is minimal degenerative disc narrowing at L2-3. There is circumferential annular bulge as well as mild posterior disc protrusion and a high intensity zone this does not simply compromise the spinal canal or neural foramina. There is moderate degenerative disc narrowing at L3-4. There is mild circumferential annular bulge, which does not significantly compromise the spinal canal, may slightly compromise bilateral neural foramina. Bilateral facet hypertrophy also contributes to mild neural foraminal stenosis. The disc space is preserved at L4-5. No significant disc bulge or protrusion or spinal stenosis or neural foraminal stenosis. At L5-S1, there is minimal if any broad-based posterior disc protrusion. No significant spinal canal stenosis or neural foraminal stenosis is demonstrated Included extra spinal soft tissues are unremarkable for a few tiny cysts within the right kidney. Impression: Minimal degenerative changes, as described No acute abnormality or evidence of significant neural impingement
[2019-09-09] MEDS ORDERED: NS 275ml ONE (19:40)
[2019-09-09] MEDS: Miralax 17gm pkt ORAL SCH (20:58)
--- NOTE | 2019-09-09 22:15 | Discharge Summary ---
DATE OF ADMISSION: 09/04/2019 DATE OF DISCHARGE: 09/09/2019 PROCEDURES DONE HERE: IVC filter placed on 09/08/2019. SIGNIFICANT FINDINGS: Bilateral PE. BRIEF HOSPITAL COURSE AND SUMMARY: This is an 84-year-old female with history of hypertension, hyperlipidemia, diabetes, hyponatremia, B12 deficiency, obesity, history of PE in 2018 and treated with anticoagulation, hypertension, history of noncompliance who presented to emergency room with shortness of breath. She had a CTA chest showing extensive bilateral central pulmonary emboli right more than left. Patient was started on heparin drip. She was found to have DVT of her right popliteal and femoral veins and underwent an IVC filter on 09/08/2019. She was also found to have bradycardia while here and her Bystolic was discontinued. Heparin drip was changed to Eliquis 10 mg p.o. b.i.d. for 7 days followed by 5 mg p.o. b.i.d. Her TTE of heart showed no left ventricular dysfunction or strain. She is off oxygen and stable for discharge. Patient was followed by Dr. Benjamin from Pulmonary. Patient will have a lumbar and thoracic MRI of her spine prior to discharge. Also will follow up with Dr. Zach Hui. DISCHARGE CONDITION: Stable. DISCHARGE INSTRUCTIONS: Patient to follow up with her PCP as well as Dr. Benjamin. Patient to follow up with spine doctor. Patient to return to hospital for worsening shortness of breath or chest pain. Patient to have light activity on ambulation. DISCHARGE DIAGNOSES: 1. Acute PE bilaterally. 2. Obesity. 3. Sedentary secondary to lower back pain. 4. Lower back pain likely lumbar spinal stenosis. 5. History of PE and DVT. 6. Hypertension. 7. Diabetes. 8. Gout. 9. Bradycardia secondary to beta-michael. 10. Deep vein thrombosis of the right popliteal femoral vein, status post IVC filter on 09/08/2019. DISCHARGE CONDITION: Stable. Papo Mcarthur MD DR: ILIANA JOB#: [id number] CC:
[2019-09-10] VITALS (9 sets, daily range): BP systolic 120–138; BP diastolic 54–75
[2019-09-10] MEDS ORDERED: Nitroglycerin Subl 0.4mg tab SL PRN (06:00)
[2019-09-10 06:13] LABS: ALANINE AMINOTRANSFERASE 23 U/L (12-78); ALBUMIN 3.1 G/DL (3.4-5.0); ALBUMIN/GLOBULIN RATIO 0.7 (1.0-2.7); ALKALINE PHOSPHATASE 123 U/L (46-116); ANION GAP 11 mmol/L (5-15); ASPARTATE AMINO TRANSFERASE 24 U/L (15-37); BILIRUBIN,TOTAL 0.6 MG/DL (0.2-1.0); BLOOD UREA NITROGEN 13 mg/dL (7-18); CALCIUM 9.5 MG/DL (8.5-10.1); CARBON DIOXIDE 25 MMOL/L (21-32); CHLORIDE 99 MMOL/L (98-107); CREATININE 1.1 MG/DL (0.55-1.30); POTASSIUM 3.8 MMOL/L (3.5-5.1); SODIUM 135 MMOL/L (136-145)
[2019-09-10] MEDS ORDERED: Morphine Sulfate 2mg/ml Inj(IV/IM USE ONLY) IVP PRN (06:15)
[2019-09-10] MEDS ORDERED: hydroCHLOROthiazide 12.5mg TAB ORAL SCH (09:00)
[2019-09-10] MEDS ORDERED: Docusate 100mg cap ORAL SCH (09:00)
[2019-09-10] MEDS ORDERED: Eliquis 5mg tablet ORAL SCH (09:00)
--- NOTE | 2019-09-10 10:08 | Pulmonology Progress Note ---
Mandi Abreu RING ATTACHER 09/10/19 1008: Subjective ROS Limited/Unobtainable: No Allergies: Coded Allergies: No Known Allergies (Unverified , 09/04/19) Subjective unclear why was not dc yesterday as ordered by attending transferred to [facility] remains stable, no SOB, no CP pulse ox stable on RA completed MRI T and L spine, which essentially unremarkable Objective Last 24 Hour Vital Signs Date Time Temp Pulse Resp B/P (MAP) Pulse Ox O2 Delivery O2 Flow Rate FiO2 09/10/19 09:06 77 130/68 09/10/19 08:00 77 20 130/68 (88) 97 09/10/19 06:00 70 21 125/69 (87) 97 09/10/19 05:00 68 18 138/60 (86) 97 09/10/19 04:00 Room Air 09/10/19 04:00 98.2 72 21 135/64 (87) 97 09/10/19 04:00 72 09/10/19 03:00 69 24 137/64 (88) 93 09/10/19 02:00 69 23 121/54 (76) 95 09/10/19 01:00 70 23 127/54 (78) 94 09/10/19 00:00 68 09/10/19 00:00 Room Air 09/10/19 00:00 98.0 72 21 120/56 (77) 94 09/09/19 23:00 70 29 109/55 (73) 96 09/09/19 22:00 101 25 135/84 (101) 98 09/09/19 21:00 69 28 136/76 (96) 98 09/09/19 20:00 70 09/09/19 20:00 98.2 73 34 136/64 (88) 97 09/09/19 20:00 Room Air 09/09/19 19:00 79 20 127/83 (98) 97 09/09/19 18:00 63 14 127/66 (86) 98 09/09/19 17:00 62 14 126/60 (82) 96 09/09/19 16:08 98.0 64 14 130/65 (86) 96 09/09/19 16:00 Room Air 09/09/19 16:00 73 09/09/19 15:00 61 14 132/68 (89) 96 09/09/19 14:26 72 132/71 7/21/20 14:00 72 24 132/71 (91) 94 09/09/19 12:00 70 09/09/19 12:00 98.4 70 26 144/78 (100) 97 09/09/19 12:00 Room Air 09/09/19 11:00 78 22 151/64 (93) 98 Intake and Output 09/09/19 09/10/19 19:00 07:00 Intake Total 690 ml 220 ml Output Total 800 ml 550 ml Balance -110 ml -330 ml Intake Oral 690 ml 220 ml Output Urine Total 800 ml 550 ml # Bowel Movements 2 Objective General Appearance: awake , alert and responsive elderly very pleasant female in NAD Lines, tubes and drains: peripheral HEENT: normocephalic, atraumatic, anicteric, mucous membranes moist, O2 via NC Neck: non-tender, supple, normal inspection Respiratory/Chest: chest wall non-tender, lungs clear, no respiratory distress , no accessory muscle use Cardiovascular/Chest: normal peripheral pulses, normal rate, regular rhythm Abdomen: normal bowel sounds, non tender, soft Extremities: non-tender, no calf tenderness, normal capillary refill, moves all extremities Skin Exam: warm/dry Neurologic: no motor/sensory deficits, alert, responsive Musculoskeletal: atrophy BLE Laboratory Tests 09/10/19 03:30: Sodium Level 135L, Potassium Level 3.8, Chloride Level 99, Carbon Dioxide Level 25, Anion Gap 11, Blood Urea Nitrogen 13, Creatinine 1.1, Estimat Glomerular Filtration Rate 57.4, Glucose Level 100, Calcium Level 9.5, Total Bilirubin 0.6 , Aspartate Amino Transf (AST/SGOT) 24, Alanine Aminotransferase (ALT/SGPT) 23, Alkaline Phosphatase 123H, Total Protein 7.4, Albumin 3.1L, Globulin 4.3, Albumin/Globulin Ratio 0.7L Current Medications Medications (Trade) Dose Ordered Sig/Francisca Route PRN Reason Start Time Stop Time Status Last Admin Dose Admin Acetaminophen (Tylenol) 650 mg Q4H PRN ORAL Mild Pain (Pain Scale 1-3) 09/10/19 06:15 10/04/19 06:14 Acetaminophen (Tylenol) 650 mg Q4H PRN ORAL T>100.5 09/10/19 06:15 10/04/19 06:14 Amlodipine Besylate (Norvasc) 5 mg DAILY ORAL 09/10/19 09:00 10/09/19 11:59 09/10/19 09:06 Apixaban (Eliquis) 10 mg BID ORAL 09/10/19 09:00 09/15/19 18:01 09/10/19 09:09 Dextrose (Dextrose 50%) 25 ml Q30M PRN IV Hypoglycemia 09/10/19 06:15 12/03/19 20:14 Dextrose (Dextrose 50%) 50 ml Q30M PRN IV Hypoglycemia 09/10/19 06:15 12/03/19 20:14 Docusate Sodium (Colace) 100 mg TWICE A DAY ORAL 09/10/19 09:00 10/06/19 17:59 09/10/19 09:08 Hydralazine HCl (Apresoline) 10 mg Q4H PRN IV sbp>160 mmHg 09/10/19 06:30 12/03/19 06:29 Hydrochlorothiazide (Hydrodiuril) 12.5 mg DAILY ORAL 09/10/19 09:00 10/05/19 10:59 09/10/19 09:08 Morphine Sulfate (Morphine Sulfate) 2 mg Q6H PRN IVP Moderate Pain (Pain Scale 4-6) 09/10/19 06:15 09/11/19 06:14 Nitroglycerin (Ntg) 0.4 mg Q5M PRN SL Prn Chest Pain 09/10/19 06:00 Ondansetron HCl (Zofran) 4 mg Q6H PRN IVP Nausea & Vomiting 09/10/19 06:15 10/04/19 06:14 Pantoprazole (Protonix) 40 mg DAILY ORAL 09/10/19 09:00 10/06/19 08:59 09/10/19 09:08 Polyethylene Glycol (Miralax) 17 gm BEDTIME ORAL 09/10/19 21:00 10/06/19 20:59 Polyethylene Glycol (Miralax) 17 gm HSPRN PRN ORAL Constipation 09/10/19 21:00 10/04/19 20:59 Temazepam (Restoril) 15 mg HSPRN PRN ORAL Insomnia 09/10/19 21:00 09/11/19 20:59 Assessment/Plan Assessment/Plan ASSESSMENT Acute hypoxemic resp failure ( requiring supplemetnal O2, likely due to acute extensive PE) -resolved Acute PE bilaterally ( with hx of prior PE 2017) s/p IVC filter placement Elevated troponin Acute DVT R popliteal and femoral veins Bradycardia probably due to BB HTN Severe pulmonary HTN Hypokalemia-resolved DM HLD CHF r/o COVID 19 -rapid NGT constipation -resolved PLAN OF CARE tele O2 titrate to keep sat above 92%, currently on RA pulm toilet was on heparin gtt Venous Duplex -> DVT involving the right popliteal and femoral veins reoccurrence of PE most likely due to DVT, secondary to sedentary lifestyle s/p IVC filter placement 09/07 now on Eliquis s/p IVF placement given second episode of PE likely will need life long a/c o/p fup with heme remove IVC in 3 months initially serial troponin, minimally elevated last two troponin 09/06 afternoon and am 09/07 -NGT ECHO with pEG 65%, moderate TR, RVSP of 65, c/w severe pulmonary HTN elevated troponin was likely due to extensive PE BB stopped due to bradycardia in 40th, nitro , HR better cardio eval -appreciated diuretics: Lasix and HcTZ, monitor volumes and cardiorenal parameters BP management, currently stable GI prophylaxis BS management - per primary team supportive care when dc consider sleep study and PFT as OP MRI T and L spine noted, essentially unremarkable, minimal degenerative changes dc today, discussed with primary nurse and charge nurse dc on Eiquis 10 mg po bid x 7 days, then 5 mg po bid case discussed and evaluated by supervising physician Radames Lozano MD 09/10/19 1148: Subjective Allergies: Coded Allergies: No Known Allergies (Unverified , 09/04/19) Assessment/Plan Assessment/Plan Patient seen and examined with RING ATTACHER. Agree with A&P as it reflects our joint deliberation. Mandi Abreu NP Sep 10, 2019 10:08 Radames Lozano MD Sep 10, 2019 11:48
[2019-09-10] MEDS ORDERED: Miralax 17gm pkt ORAL SCH (21:00)
[2019-09-10] MEDS ORDERED: Miralax 17gm pkt ORAL PRN (21:00)
== END 2019-09-10 13:25 | disposition home or self-care (01) | DRG 166 ==
LOC: EDBD 16:20 → EMR 17:30 → ICU 17:40 → EDBEDREQ 19:32 → EDBEDREQSVC 19:32 → EDBEDREQ 19:35 → 2E 09-10 06:00
PROC: 06H03DZ Insertion of Intraluminal Device into Inferior Vena Cava, Percutaneous Approach (ICD-10-PCS; principal; 2019-09-08)
DX: I26.99 Other pulmonary embolism without acute cor pulmonale (principal); J96.00 Acute respiratory failure, unspecified whether with hypoxia or hypercapnia; J96.01 Acute respiratory failure with hypoxia; I82.431 Acute embolism and thrombosis of right popliteal vein; I82.411 Acute embolism and thrombosis of right femoral vein; E66.9 Obesity, unspecified; Z68.29 Body mass index [BMI] 29.0-29.9, adult; E11.9 Type 2 diabetes mellitus without complications; M10.9 Gout, unspecified; M48.061 Spinal stenosis, lumbar region without neurogenic claudication; Z20.828 Contact with and (suspected) exposure to other viral communicable diseases; R00.1 Bradycardia, unspecified; T46.5X5A Adverse effect of other antihypertensive drugs, initial encounter; Z86.73 Personal history of transient ischemic attack (TIA), and cerebral infarction without residual deficits; I27.20 Pulmonary hypertension, unspecified; I11.0 Hypertensive heart disease with heart failure; Z79.02 Long term (current) use of antithrombotics/antiplatelets; Z79.82 Long term (current) use of aspirin; E78.5 Hyperlipidemia, unspecified; K59.00 Constipation, unspecified
CPT/HCPCS: 36415; 36600; 71045; 71275; 72146; 72148; 76937; 80048; 80053; 80069; 82803; 83735; 83880; 84484; 85025; 85610; 85730; 87081; 93005; 93306; 93970; 96374; 99291; J8499; U0002